=== PATIENT | male | born 1955 | race Caucasian/White ===

== ENCOUNTER 2018-07-02 10:04 | Day surgery (SDC) | payer OTHER ==
[~2018-07-02 10:04] MED LIST: CIPROFLOXACIN 0.3% OPHTH SOLUTION 5ML BOTTLE. OS ONE; DOCU100C28 PO; HYDROmorphone 2 MG/ML VIAL IV PRN; IV RINGERS,LACTATED 1000ML 1,000 ML IV SCH; LEVO175T5 PO; LIDOCAINE 1% PF 2 ML VIAL. ID PRN; LIDOCAINE 2% JELLY 6ML IN APPLICATOR. MM SCH; MORPHINE SULFATE 2 MG/ML VIAL. IV PRN; ONDANSETRON PF 4 MG/2 ML VIAL. IV PRN; PROCHLORPERAZINE 10 MG/2 ML VIAL. IV PRN; PROPARACAINE 0.5% OPHTH SOLUTION 15ML BOTTLE. OS ONE; fentaNYL PF VIAL 100 MCG/2 ML VIAL IV PRN
[2018-07-02] MEDS ORDERED: BALANCED SALT IRRIG OPHTH SOLN 15 ML BOTTLE. ONE (10:29)
[2018-07-02] MEDS ORDERED: LIDOCAINE 1% PF 2 ML VIAL. ONE (10:29)
[2018-07-02] MEDS ORDERED: CHONDROIT-SOD-HYALURONATE KIT. ONE ×2 (10:29→13:02)
[2018-07-02] MEDS ORDERED: NEO/POLYMYX/DEXAMETH OPHTH OINTMENT 3.5GM TUBE. ONE (10:29)
[2018-07-02] MEDS ORDERED: LIDOCAINE 2% JELLY 6ML IN APPLICATOR. ONE (10:29)
[2018-07-02] MEDS: PHENYLEPHRINE 10% OPHTH SOLUTION 5ML BOTTLE. OS SCH ×3 (11:33→11:47)
[2018-07-02] MEDS: CYCLOPENTOLATE 1% OPTH SOLUTION 2ML BOTTLE. OS SCH ×2 (11:39→11:48)
[2018-07-02] MEDS ORDERED: PROPOFOL 20 ML IV ONE (11:52)
[2018-07-02 13:06] VITALS: BP 181/81
--- NOTE | 2018-07-02 13:31 | OP ---
DATE OF SURGERY: PREOPERATIVE DIAGNOSIS: Senile cataract, left eye. POSTOPERATIVE DIAGNOSIS: Senile cataract, left eye. PROCEDURE: Phacoemulsification with posterior chamber lens implant, left eye. ANESTHESIA: Local with MAC. DESCRIPTION OF PROCEDURE: The patient's dilating drops and anesthetic drops were given in the holding room with a [place] balloon cuff placed and allowed to act for about 15 minutes. The patient was then brought to the operating room, where the left eye was prepped and draped in usual sterile manner for an intraocular procedure. A lid speculum was placed between the eyelids and the operating scope brought into position. A paracentesis incision was made inferior temporally and Viscoat injected into the anterior chamber. The primary 2.4 mm incision was then made temporally. A capsulorrhexis of about 5.5 mm was made about the dilated pupillary border. The lens was hydrodissected and then phacoemulsified using the phaco handpiece. The cortex was then aspirated with the I/A handpiece. Provisc was then used to insufflate the bag and form the anterior chamber and a posterior chamber lens placed into the bag without difficulty. The viscoelastic was then aspirated and the wound hydrated and the eye pressurized. The wound was checked for leaks and there were none. The speculum and drape were removed and Maxitrol ointment instilled in the conjunctival sac and the eye was shielded. The patient was taken to the recovery room in satisfactory condition. There were no complications. I will see the patient tomorrow in my office. K KATHRYN MOONEY MD DR: ALEXEI/phil JOB#: [id number] / [id number]
== END 2018-07-02 13:40 | disposition home or self-care (01) ==
LOC: SURG 10:04 → EDUNIT# 12:00 → SURG 13:40
PROVIDERS: ATTEND Ophthalmology
DX: H25.12 Age-related nuclear cataract, left eye (principal); E03.9 Hypothyroidism, unspecified; Z72.89 Other problems related to lifestyle; Z98.41 Cataract extraction status, right eye; Z96.1 Presence of intraocular lens; Z85.818 Personal history of malignant neoplasm of other sites of lip, oral cavity, and pharynx; Z79.899 Other long term (current) drug therapy; Z98.890 Other specified postprocedural states
CPT/HCPCS: 66984; A4461; C1780; J0171; J2704

== ENCOUNTER 2018-10-12 14:54 | Inpatient (IN) | payer OTHER ==
[~2018-10-12] VITALS: Ht 188 cm; Wt 88.5 kg
[~2018-10-12 14:54] MED LIST changes: -CIPROFLOXACIN 0.3% OPHTH SOLUTION 5ML BOTTLE. OS ONE; -HYDROmorphone 2 MG/ML VIAL IV PRN; -IV RINGERS,LACTATED 1000ML 1,000 ML IV SCH; -LIDOCAINE 1% PF 2 ML VIAL. ID PRN; -LIDOCAINE 2% JELLY 6ML IN APPLICATOR. MM SCH; -MORPHINE SULFATE 2 MG/ML VIAL. IV PRN; -ONDANSETRON PF 4 MG/2 ML VIAL. IV PRN; -PROCHLORPERAZINE 10 MG/2 ML VIAL. IV PRN; -PROPARACAINE 0.5% OPHTH SOLUTION 15ML BOTTLE. OS ONE; -fentaNYL PF VIAL 100 MCG/2 ML VIAL IV PRN
[2018-10-12] MEDS ORDERED: IPRATRPIUM/ALBUTEROL 0.5/2.5MG 3 ML NEBU. NEB ONE (15:15)
--- NOTE | 2018-10-12 15:40 | RAD ---
CHEST AP ONLY Clinical Indication: soa Comparison: None. Findings: The cardiomediastinal silhouette is normal. Subtle opacity involving the right medial basilar aspect raises question of interstitial infiltrate. There is no pneumothorax. No pleural effusion is appreciated. No acute bone abnormality. IMPRESSION: Possibility of subtle right basilar interstitial infiltrate is raised. Consider interval follow-up two-view chest x-ray exam to assess resolution. Electronically signed by: Gurdeep Myers MD (10/12/2018 3:37 PM) [facility]
--- NOTE | 2018-10-12 15:40 | PHYS DOC ---
Past Medical History Past Medical History: Cancer, Hypothyroid Past Surgical History: Cancer Surgery, Other Additional Past Surgical Histo: BILATERAL CATARACT Alcohol Use: Heavy Drug Use: None Adult General Chief Complaint Chief Complaint: SHORTNESS OF BREATH HPI HPI 62-year-old male presenting the emergency department today with a cough with shortness of breath since . He has a productive cough with brown phlegm. He reports having a fever over the past 2 days. He denies any pain. His shortness of breath is worse when he walks and improved with rest. It is associated with a productive cough. Review of systems is negative for chest pain vomiting abdominal pain. He denies unilateral leg swelling or history of blood clots. All other review of systems is negative unless otherwise noted in history of present illness. ED course: 62-year-old male presenting with a cough and shortness of breath. On arrival he is afebrile saturating well on room air. Breathing comfortably examination room. He has mild wheezing bilaterally without increased work of breathing. we will send blood work, get a chest x-ray and do a nebulizer for the patient here. Chest x-ray shows probable infiltrate. Blood work shows hyponatremia. CT angiogram confirms infiltrate. Patient was given IV antibiotics and admitted for further treatment and care. Review of Systems Review of Systems SEE ABOVE. Current Medications Current Medications Current Medications Medications (Trade) Dose Ordered Sig/Jarvis Start Time Stop Time Status Last Admin Dose Admin Albuterol/ Ipratropium (Duoneb) 3 ml 1X ONCE 10/12/18 15:15 10/12/18 15:16 DC 10/12/18 15:29 3 ML Azithromycin 250 ml @ 250 mls/hr 1X ONCE 10/12/18 18:30 10/12/18 19:29 Ceftriaxone Sodium (Rocephin) 1 gm 1X ONCE 10/12/18 17:45 10/12/18 17:46 UNV Iohexol (Omnipaque 350 Mg/ml) 100 ml 1X ONCE 10/12/18 16:45 10/12/18 16:46 DC 10/12/18 16:45 100 ML Labetalol HCl (Normodyne Iv Push) 10 mg 1X ONCE 10/12/18 17:45 10/12/18 17:46 UNV Morphine Sulfate (Morphine Sulfate) 2 mg PRN Q2HR PRN 10/12/18 17:45 10/13/18 17:44 UNV Ondansetron HCl (Zofran) 4 mg PRN Q8HRS PRN 10/12/18 17:45 10/13/18 17:44 UNV Sodium Chloride 1,000 ml @ 100 mls/hr Q10H 10/12/18 17:36 10/13/18 17:35 UNV Allergies Allergies Allergies Coded Allergies Type Severity Reaction Last Updated Verified No Known Drug Allergies 07/02/18 No Physical Exam Physical Exam SEE ABOVE Constitutional: Well developed, well nourished, no acute distress, non-toxic appearance. [] HENT: Normocephalic, atraumatic, bilateral external ears normal, oropharynx moist, no oral exudates, nose normal. [] Eyes: PERRLA, EOMI, conjunctiva normal, no discharge. [] Neck: Normal range of motion, no tenderness, supple, no stridor. [] Cardiovascular:Heart rate regular rhythm, no murmur [] Lungs & Thorax: as above. no crepitus to palpation Abdomen: Bowel sounds normal, soft, no tenderness, no masses, no pulsatile masses. [] Skin: Warm, dry, no erythema, no rash. [] Back: No tenderness, no CVA tenderness. [] Extremities: No tenderness, no cyanosis, no clubbing, ROM intact, no edema. [] Neurologic: Alert and oriented X 3, normal motor function, normal sensory function, no focal deficits noted. [] Psychologic: Affect normal, judgement normal, mood normal. [] Current Patient Data Vital Signs Vital Signs Date Time Temp Pulse Resp B/P (MAP) Pulse Ox O2 Delivery O2 Flow Rate FiO2 10/12/18 15:30 95 Room Air 10/12/18 15:23 98.6 82 20 150/78 (102) 98.6 Lab Values Laboratory Tests Test 10/12/18 15:31 10/12/18 16:02 White Blood Count 7.2 x10^3/uL (4.0-11.0) Red Blood Count 4.58 x10^6/uL (4.30-5.70) Hemoglobin 14.7 g/dL (13.0-17.5) Hematocrit 42.1 % (39.0-53.0) Mean Corpuscular Volume 92 fL (79-100) Mean Corpuscular Hemoglobin 32 pg (25-35) Mean Corpuscular Hemoglobin Concent 35 g/dL (31-37) Red Cell Distribution Width 14.0 % (11.5-14.5) Platelet Count 154 x10^3/uL (140-400) Neutrophils (%) (Auto) 85 % (31-73) H Lymphocytes (%) (Auto) 5 % (24-48) L Monocytes (%) (Auto) 10 % (0-9) H Eosinophils (%) (Auto) 0 % (0-3) Basophils (%) (Auto) 0 % (0-3) Neutrophils # (Auto) 6.1 x10^3uL (1.8-7.7) Lymphocytes # (Auto) 0.4 x10^3/uL (1.0-4.8) L Monocytes # (Auto) 0.7 x10^3/uL (0.0-1.1) Eosinophils # (Auto) 0.0 x10^3/uL (0.0-0.7) Basophils # (Auto) 0.0 x10^3/uL (0.0-0.2) D-Dimer (Renata) 1.31 ug/mlFEU (0.00-0.50) H Sodium Level 125 mmol/L (136-145) L Potassium Level 3.5 mmol/L (3.5-5.1) Chloride Level 89 mmol/L (98-107) L Carbon Dioxide Level 23 mmol/L (21-32) Anion Gap 13 (6-14) Blood Urea Nitrogen 6 mg/dL (8-26) L Creatinine 0.9 mg/dL (0.7-1.3) Estimated GFR (Cockcroft-Gault) 86.1 Glucose Level 119 mg/dL (70-99) H Calcium Level 8.8 mg/dL (8.5-10.1) Total Bilirubin 0.8 mg/dL (0.2-1.0) Direct Bilirubin 0.2 mg/dL (0.0-0.2) Aspartate Amino Transferase (AST) 48 U/L (15-37) H Alanine Aminotransferase (ALT) 24 U/L (16-63) Alkaline Phosphatase 69 U/L (46-116) Troponin I Quantitative < 0.017 ng/mL (0.000-0.055) TG-Eqd-P-Type Natriuretic Peptide 269 pg/mL (0-124) H Total Protein 7.8 g/dL (6.4-8.2) Albumin 3.0 g/dL (3.4-5.0) L Lipase 90 U/L (73-393) Influenza Type A Antigen Negative (NEGATIVE) Influenza Type B Antigen Negative (NEGATIVE) Laboratory Tests 10/12/18 15:31 Laboratory Tests 10/12/18 15:31 EKG EKG [] Radiology/Procedures Radiology/Procedures [] Course & Med Decision Making Course & Med Decision Making Pertinent Labs and Imaging studies reviewed. (See chart for details) [] Dragon Disclaimer Dragon Disclaimer This electronic medical record was generated, in whole or in part, using a voice recognition dictation system. Departure Departure Impression: Primary Impression: Pneumonia Additional Impression: Productive cough Disposition: ADMITTED INPATIENT Admitting Physician: Mariano Washington, Other Condition: STABLE Referrals: NO PCP (PCP) Problem Qualifiers DANILO HOLLIDAY MD Oct 12, 2018 15:40
[2018-10-12 15:49] LABS: BASO % 0 % (0-3); EOS % 0 % (0-3); HEMATOCRIT 42.1 % (39.0-53.0); HEMOGLOBIN 14.7 g/dL (13.0-17.5); LYMPH # 0.4 x10^3/uL (1.0-4.8); LYMPH % 5 % (24-48); MEAN CORPUSCULAR HEMOGLOBIN 32 pg (25-35); MEAN CORPUSCULAR HGB CONC 35 g/dL (31-37); MEAN CORPUSCULAR VOLUME 92 fL (79-100); MONO # 0.7 x10^3/uL (0.0-1.1); MONO % 10 % (0-9); NEUT # 6.1 x10^3uL (1.8-7.7); NEUT % 85 % (31-73); PLATELET COUNT 154 x10^3/uL (140-400); RED BLOOD COUNT 4.58 x10^6/uL (4.30-5.70); WHITE BLOOD COUNT 7.2 x10^3/uL (4.0-11.0)
[2018-10-12 16:03] LABS: CALCIUM 8.8 mg/dL (8.5-10.1); CREATININE 0.9 mg/dL (0.7-1.3); GFR 86.1; POTASSIUM 3.5 mmol/L (3.5-5.1)
[2018-10-12 16:07] LABS: DIRECT BILIRUBIN 0.2 mg/dL (0.0-0.2); TOTAL BILIRUBIN 0.8 mg/dL (0.2-1.0); TOTAL PROTEIN 7.8 g/dL (6.4-8.2)
[2018-10-12 16:28] LABS: INFLUENZA A PATIENT NEGATIVE (NEGATIVE); INFLUENZA B PATIENT NEGATIVE (NEGATIVE)
[2018-10-12] MEDS ORDERED: IOHEXOL 350 MG/ML 100 ML VIAL. IV ONE (16:45)
--- NOTE | 2018-10-12 17:33 | RAD ---
CT angiography chest with contrast PQRS statement: CT scans at this facility use dose reduction including either automated exposure control, iterative reconstructions, and /or weight based radiation dosing via mA and kV modification when appropriate to reduce radiation dose to as low as reasonably achievable. HISTORY: Cough for several days. TECHNIQUE: Helical CT imaging of the chest with 3-D MIP reconstructions of the pulmonary arteries to assess for emboli with 100 mL Omnipaque 300 intravenous contrast. FINDINGS: Ectasia ascending thoracic aorta diameter 3.7 cm. Heart size is normal. Heart size normal. No pulmonary artery emboli. Esophagus and thoracic aorta are unremarkable. There is mild bilateral hilar adenopathy with lymph nodes measuring up to 1.5 cm in size. Centrilobular pulmonary emphysema. Mild bronchial wall thickening. Extensive centrilobular nodules and scattered opacities with a preferential involvement at the lower lobes and right middle lobe where there is consolidation with air bronchograms of the right middle lobe. Tiny subcentimeter dependent pleural effusions along the posterior diaphragms. Bones are unremarkable. IMPRESSION: 1. No pulmonary artery emboli. 2. Extensive bilateral multilobar centrilobular nodules and opacities, with consolidation of the right middle lobe with air bronchograms, most typical of multilobar endobronchial pneumonia. Sarcoidosis would be a secondary consideration given the presence of adenopathy. Consider follow-up CT imaging in 3 months per Fleischner guidelines to document that this resolves to exclude the possibility of neoplasia. 3. Mild hilar adenopathy. Electronically signed by: Shantanu Burroughs MD (10/12/2018 5:30 PM) [facility]
[2018-10-12] MEDS: IV NORMAL SALINE 1000ML BAG 1,000 ML IV SCH ×2 (17:36→20:32)
[2018-10-12] MEDS ORDERED: ONDANSETRON PF 4 MG/2 ML VIAL. IV PRN (17:45)
[2018-10-12] MEDS ORDERED: MORPHINE SULFATE 2 MG/ML VIAL. IV PRN (17:45)
--- NOTE | 2018-10-12 17:54 | PDOC1 ---
History and Physical Date of Admission Date of Admission DATE: 10/12/18 TIME: 17:54 Identification/Chief Complaint Chief Complaint SEEN IN ER , presented with a cough and shortness of breath. mild wheezing bilaterally SOME increased work of breathing. Chest x-ray shows probable infiltrate. Blood work C/W hyponatremia. CT angiogram confirms SIGNIFICANT infiltrate. Patient was given IV antibiotics IN ER Past Medical History Past Medical History Past Medical History Past Medical History Past Medical History: Cancer, Hypothyroid Past Surgical History: Cancer Surgery, Other Additional Past Surgical Histo: BILATERAL CATARACT Alcohol Use: Heavy Drug Use: None family hx copd Psych: Addictions Endocrine: Hypothyroidism Past Surgical History Past Surgical History Phacoemulsification with posterior chamber lens implant, left eye. 07/08 Past Surgical History: Cataract Removal Family History Family History: Alcohol Abuse Family History: Parent Social History Smoke: <1 pack per day ALCOHOL: heavy Drugs: None Current Problem List Problem List Problems Medical Problems: (1) Pneumonia Status: Acute (2) Productive cough Status: Acute Current Medications Current Medications Current Medications Albuterol/ Ipratropium (Duoneb) 3 ml 1X ONCE NEB Last administered on at 15:29; Start 10/12/18 at 15:15; Stop 10/12/18 at 15:16; Status DC Iohexol (Omnipaque 350 Mg/ml) 100 ml 1X ONCE IV Last administered on at 16:45; Start 10/12/18 at 16:45; Stop 10/12/18 at 16:46; Status DC Azithromycin 250 ml @ 250 mls/hr 1X ONCE IV ; Start 10/12/18 at 18:30; Stop at 19:29 Ceftriaxone Sodium (Rocephin) 1 gm 1X ONCE IVP ; Start 10/12/18 at 18:00; Stop 10/12/18 at 18:01 Ondansetron HCl (Zofran) 4 mg PRN Q8HRS PRN IV NAUSEA/VOMITING; Start 10/12/18 at 17:45; Stop 10/13/18 at 17:44 Morphine Sulfate (Morphine Sulfate) 2 mg PRN Q2HR PRN IV PAIN; Start 10/12/18 at 17:45; Stop 10/13/18 at 17:44 Sodium Chloride 1,000 ml @ 100 mls/hr Q10H IV ; Start 10/12/18 at 17:36; Stop 10/13/18 at 17:35 Labetalol HCl (Normodyne Iv Push) 10 mg 1X ONCE IVP ; Start 10/12/18 at 18:15; Stop 10/12/18 at 18:16 Active Scripts Active Reported Docusate Sodium 100 Mg Capsule 100 Mg PO PRN PRN Levothyroxine Sodium 175 Mcg Tablet 175 Mcg PO DAILYAC Allergies Allergies: Coded Allergies: No Known Drug Allergies (Unverified , 07/02/18) ROS Review of System 14 PT ROS OTHERWISE NEG General: YES: Fatigue PSYCHOLOGICAL ROS: YES: Anxiety Eyes: No Blurry vision, No Decreased vision, No Double vision, No Dry eyes, No Excessive tearing, No Eye Pain, No Itchy Eyes, No Loss of vision, No Photophobia , No Scotomata, No Uses contacts, No Uses glasses, No Other HEENT: No: Heacaches, Visual Changes, Hearing change, Nasal congestion, Nasal discharge, Oral lesions, Sinus pain, Sore Throat, Epistaxis, Sneezing, Snoring, Tinnitus, Vertigo, Vocal changes, Other ALLERGY AND IMMUNOLOGY: No: Hives, Insect Bite Sensitivity, Itchy/Watery Eyes, Nasal Congestion, Post Nasal Drip, Seasonal Allergies, Other Hematological and Lymphatic: No: Bleeding Problems, Blood Clots, Blood Transfusions, Brusing, Night Sweats, Pallor, Swollen Lymph Nodes, Other Respiratory: YES: Cough, Shortness of breath, SOB with excertion, Sputum Changes Gastrointestinal: No Nausea, No Vomiting, No Abdominal Pain, No Diarrhea, No Constipation, No Melena, No Hematochezia, No Other Genitourinary: No Dysuria, No Frequency, No Incontinence, No Hematuria, No Retention, No Discharge, No Urgency, No Pain, No Flank Pain, No Other, No , No , No , No , No , No , No Neurological: No Behavorial Changes, No Bowel/Bladder ControlChng, No Confusion , No Dizziness, No Gait Disturbance, No Headaches, No Impaired Coord/balance, No Memory Loss, No Numbness/Tingling, No Seizures, No Speech Problems, No Tremors, No Visual Changes, No Weakness, No Other Skin: No Dry Skin, No Eczema, No Hair Changes, No Lumps, No Mole Changes, No Mottling, No Nail Changes, No Pruritus, No Rash, No Skin Lesion Changes, No Other, No Acne Physical Exam Physical Exam Physical Exam Physical Exam SEE ABOVE Constitutional: Well developed, well nourished, MILD acute distress, non-toxic appearance. [] HENT: Normocephalic, atraumatic, bilateral external ears normal, oropharynx moist, no oral exudates, nose normal. [] Eyes: PERRLA, EOMI, conjunctiva normal, no discharge. [] Neck: Normal range of motion, no tenderness, supple, no stridor. [] Cardiovascular:Heart rate regular rhythm, no murmur [] Lungs & Thorax: FEW RLL CRACKLES, EXP WHEEZES no crepitus to palpation Abdomen: Bowel sounds normal, soft, no tenderness, no masses, no pulsatile masses. [] Skin: Warm, dry, no erythema, no rash. [] Back: No tenderness, no CVA tenderness. [] Extremities: No tenderness, no cyanosis, no clubbing, ROM intact, no edema. [] Neurologic: Alert and oriented X 3, normal motor function, normal sensory function, no focal deficits noted. [] Psychologic: Affect normal, judgement normal, mood normal. [] General: Alert, Oriented X3, Cooperative, mild distress HEENT: Atraumatic, EOMI Heart: RRR, no thrills, no gallops Breasts: Not examined Abdomen: Normal bowel sounds, Soft, No tenderness Rectal Exam: not examined Extremities: No cyanosis, No edema Neuro: Normal speech, Cranial nerves 3-12 NL Psych/Mental Status: Mental status NL Vitals Vitals Vital Signs Date Time Temp Pulse Resp B/P (MAP) Pulse Ox O2 Delivery O2 Flow Rate FiO2 10/12/18 15:30 95 Room Air 10/12/18 15:23 98.6 82 20 150/78 (102) 98.6 Labs Labs Laboratory Tests Test 10/12/18 15:31 10/12/18 16:02 White Blood Count 7.2 x10^3/uL (4.0-11.0) Red Blood Count 4.58 x10^6/uL (4.30-5.70) Hemoglobin 14.7 g/dL (13.0-17.5) Hematocrit 42.1 % (39.0-53.0) Mean Corpuscular Volume 92 fL (79-100) Mean Corpuscular Hemoglobin 32 pg (25-35) Mean Corpuscular Hemoglobin Concent 35 g/dL (31-37) Red Cell Distribution Width 14.0 % (11.5-14.5) Platelet Count 154 x10^3/uL (140-400) Neutrophils (%) (Auto) 85 % (31-73) Lymphocytes (%) (Auto) 5 % (24-48) Monocytes (%) (Auto) 10 % (0-9) Eosinophils (%) (Auto) 0 % (0-3) Basophils (%) (Auto) 0 % (0-3) Neutrophils # (Auto) 6.1 x10^3uL (1.8-7.7) Lymphocytes # (Auto) 0.4 x10^3/uL (1.0-4.8) Monocytes # (Auto) 0.7 x10^3/uL (0.0-1.1) Eosinophils # (Auto) 0.0 x10^3/uL (0.0-0.7) Basophils # (Auto) 0.0 x10^3/uL (0.0-0.2) D-Dimer (Renata) 1.31 ug/mlFEU (0.00-0.50) Sodium Level 125 mmol/L (136-145) Potassium Level 3.5 mmol/L (3.5-5.1) Chloride Level 89 mmol/L (98-107) Carbon Dioxide Level 23 mmol/L (21-32) Anion Gap 13 (6-14) Blood Urea Nitrogen 6 mg/dL (8-26) Creatinine 0.9 mg/dL (0.7-1.3) Estimated GFR (Cockcroft-Gault) 86.1 Glucose Level 119 mg/dL (70-99) Calcium Level 8.8 mg/dL (8.5-10.1) Total Bilirubin 0.8 mg/dL (0.2-1.0) Direct Bilirubin 0.2 mg/dL (0.0-0.2) Aspartate Amino Transf (AST/SGOT) 48 U/L (15-37) Alanine Aminotransferase (ALT/SGPT) 24 U/L (16-63) Alkaline Phosphatase 69 U/L (46-116) Troponin I Quantitative < 0.017 ng/mL (0.000-0.055) QW-Rfq-I-Type Natriuretic Peptide 269 pg/mL (0-124) Total Protein 7.8 g/dL (6.4-8.2) Albumin 3.0 g/dL (3.4-5.0) Lipase 90 U/L (73-393) Influenza Type A Antigen Negative (NEGATIVE) Influenza Type B Antigen Negative (NEGATIVE) Laboratory Tests Test 10/12/18 15:31 10/12/18 16:02 White Blood Count 7.2 x10^3/uL (4.0-11.0) Red Blood Count 4.58 x10^6/uL (4.30-5.70) Hemoglobin 14.7 g/dL (13.0-17.5) Hematocrit 42.1 % (39.0-53.0) Mean Corpuscular Volume 92 fL (79-100) Mean Corpuscular Hemoglobin 32 pg (25-35) Mean Corpuscular Hemoglobin Concent 35 g/dL (31-37) Red Cell Distribution Width 14.0 % (11.5-14.5) Platelet Count 154 x10^3/uL (140-400) Neutrophils (%) (Auto) 85 % (31-73) Lymphocytes (%) (Auto) 5 % (24-48) Monocytes (%) (Auto) 10 % (0-9) Eosinophils (%) (Auto) 0 % (0-3) Basophils (%) (Auto) 0 % (0-3) Neutrophils # (Auto) 6.1 x10^3uL (1.8-7.7) Lymphocytes # (Auto) 0.4 x10^3/uL (1.0-4.8) Monocytes # (Auto) 0.7 x10^3/uL (0.0-1.1) Eosinophils # (Auto) 0.0 x10^3/uL (0.0-0.7) Basophils # (Auto) 0.0 x10^3/uL (0.0-0.2) D-Dimer (Renata) 1.31 ug/mlFEU (0.00-0.50) Sodium Level 125 mmol/L (136-145) Potassium Level 3.5 mmol/L (3.5-5.1) Chloride Level 89 mmol/L (98-107) Carbon Dioxide Level 23 mmol/L (21-32) Anion Gap 13 (6-14) Blood Urea Nitrogen 6 mg/dL (8-26) Creatinine 0.9 mg/dL (0.7-1.3) Estimated GFR (Cockcroft-Gault) 86.1 Glucose Level 119 mg/dL (70-99) Calcium Level 8.8 mg/dL (8.5-10.1) Total Bilirubin 0.8 mg/dL (0.2-1.0) Direct Bilirubin 0.2 mg/dL (0.0-0.2) Aspartate Amino Transf (AST/SGOT) 48 U/L (15-37) Alanine Aminotransferase (ALT/SGPT) 24 U/L (16-63) Alkaline Phosphatase 69 U/L (46-116) Troponin I Quantitative < 0.017 ng/mL (0.000-0.055) RY-Xcs-M-Type Natriuretic Peptide 269 pg/mL (0-124) Total Protein 7.8 g/dL (6.4-8.2) Albumin 3.0 g/dL (3.4-5.0) Lipase 90 U/L (73-393) Influenza Type A Antigen Negative (NEGATIVE) Influenza Type B Antigen Negative (NEGATIVE) Images Images SEX: M EXAM STATUS: REG ER ORD. PHYSICIAN: DANILO HOLLIDAY MD REASON: R/O PE PROCEDURE: CT ANGIOGRAPHY CHEST CT angiography chest with contrast PQRS statement: CT scans at this facility use dose reduction including either automated exposure control, iterative reconstructions, and /or weight based radiation dosing via mA and kV modification when appropriate to reduce radiation dose to as low as reasonably achievable. HISTORY: Cough for several days. TECHNIQUE: Helical CT imaging of the chest with 3-D MIP reconstructions of the pulmonary arteries to assess for emboli with 100 mL Omnipaque 300 intravenous contrast. FINDINGS: Ectasia ascending thoracic aorta diameter 3.7 cm. Heart size is normal. Heart size normal. No pulmonary artery emboli. Esophagus and thoracic aorta are unremarkable. There is mild bilateral hilar adenopathy with lymph nodes measuring up to 1.5 cm in size. Centrilobular pulmonary emphysema. Mild bronchial wall thickening. Extensive centrilobular nodules and scattered opacities with a preferential involvement at the lower lobes and right middle lobe where there is consolidation with air bronchograms of the right middle lobe. Tiny subcentimeter dependent pleural effusions along the posterior diaphragms. Bones are unremarkable. IMPRESSION: 1. No pulmonary artery emboli. 2. Extensive bilateral multilobar centrilobular nodules and opacities, with consolidation of the right middle lobe with air bronchograms, most typical of multilobar endobronchial pneumonia. Sarcoidosis would be a secondary consideration given the presence of adenopathy. Consider follow-up CT imaging in 3 months per Fleischner guidelines to document that this resolves to exclude the possibility of neoplasia. 3. Mild hilar adenopathy. Electronically signed by: Shantanu Burroughs MD (10/12/2018 5:30 PM) [facility] VTE Prophylaxis Ordered VTE Prophylaxis Devices: Yes VTE Pharmacological Prophylaxi: Yes Assessment/Plan Assessment/Plan IMPRESSION 1. PNEUMONITIS// pneumonia Extensive bilateral multilobar centrilobular nodules and opacities, with consolidation of the right middle lobe with air bronchograms, most typical of multilobar endobronchial pneumonia. Sarcoidosis would be a secondary consideration given the presence of adenopathy 2. HYPONATREMIA, Suspect volume depleted 3. SEVERE ALCOHOL ABUSE 4. tobacco abuse 5. Phacoemulsification with posterior chamber lens implant, left eye. 07/08 PLAN IV ANTIBIOTICS ALCOHOL WITHDRAWAL precautions banana bag dvt prophylaxis pulm consult iv zosyn, VANC ID CONSULT FREQUENT LABS urinary sodium 77 MIN PT EXAM, CHART REVIEW > 50% of time with pt exam, chart review, pt care coordination MARÍA ELENA GREENE MD Oct 12, 2018 17:54
[2018-10-12] MEDS ORDERED: cefTRIAXone IV Push 1 GM VIAL. IVP ONE (18:00)
[2018-10-12] MEDS ORDERED: LABETALOL 20 MG/4 ML DISP.SYRIN. IVP ONE (18:15)
[2018-10-12] MEDS ORDERED: AZITHRMYCN 500MG IVPB FOR OMNI 250 ML IV ONE (18:30)
[2018-10-12] MEDS ORDERED: ALBUTEROL SULFATE 2.5 MG/3 ML NEBU. NEB PRN (20:00)
[2018-10-12] MEDS ORDERED: BENZONATATE 100 MG CAPSULE. PO PRN (20:00)
[2018-10-12] MEDS: IPRATRPIUM/ALBUTEROL 0.5/2.5MG 3 ML NEBU. NEB SCH (20:18)
[2018-10-12 20:28] VITALS: BP 144/67
[2018-10-12] MEDS ORDERED: DOCUSATE SODIUM 100 MG CAPSULE. PO PRN (20:30)
[2018-10-12] MEDS: ZOLPIDEM 5 MG TABLET. PO PRN (22:09)
[2018-10-12] MEDS ORDERED: VANCOMYCIN 2 GM in IV NORMAL SALINE 500ML BAG 500 ML IV ONE (22:30)
[2018-10-12] MEDS ORDERED: LORazepam 1 MG TABLET PO PRN ×2 (22:30)
[2018-10-12] MEDS ORDERED: cloNIDine HCL 0.1 MG TABLET PO PRN (22:30)
[2018-10-12] MEDS ORDERED: diphenhydrAMINE 50 MG/ML VIAL IVP PRN (22:30)
[2018-10-12] MEDS ORDERED: HALOPERIDOL LACTATE 5 MG/ML VIAL. IVP PRN (22:30)
[2018-10-12 22:52] VITALS: BP 154/64
[2018-10-12] MEDS: VANCOMYCIN PER PHARMACY MC PRN (23:09)
--- NOTE | 2018-10-12 23:13 | NUR ---
Pharmacy Vancomycin Dosing Note S:Consulted to monitor and dose vancomycin started 10/12/18. O:SHALINI MOORE is a 62 year old M with Pneumonia . Height: 6 feet, 2 inches Weight: 88.540585 kg [place] Body Weight: 82.20 Adjusted Body Weight: 84.72 Dosing Weight: Actual Other Antibiotics: ZOSYN 3.375GM IV Q6H LABS: Last BUN: 6 Last Creatinine: 0.9 Creatinine Clearance: 104.6 mL/min Last WBC: 7.2 Last Procalcitonin: Tmax (past 24 hours): Microbiology: I/O: Drug Levels: Last level: on at Last dose given at Vancomycin Dosing: Loading Dose: 2000 mg x1 10/12/18 APPROX 2300 Dosing Weight: Actual Target Trough: 15-20 A: Based on: Actual Wt and CrCl P: 1. 10/13/18 1100 Vancomycin 1500 mg IV q12h 2. Follow up Trough level on 10/14/18 at 1030 3. Pharmacy will continue to monitor, follow and adjust therapy as needed. VICTORIA WOODARD RPH, 10/12/18 2313 Signed: 10/12/18 at 2314 by VICTORIA WOODARD RPH PHA
[2018-10-13] MEDS: PIPERACILLIN/TAZOBACTAM 3.375 GM in IV NORMAL SALINE 50ML 50 ML IV SCH ×4 (01:37→17:18)
[2018-10-13 02:15] LABS: BARBITURATES NEG (NEG); BENZODIAZEPINES NEG (NEG); CANNABINOIDS NEG (NEG); COCAINE NEG (NEG); METHADONE NEG (NEG); OPIATES NEG (NEG); PHENCYCLIDINE NEG (NEG)
[2018-10-13 02:37] LABS: AMPHETAMINE/METHAMPHETAMINE NEG (NEG)
[2018-10-13 03:00] VITALS: BP 144/79
[2018-10-13 03:55] LABS: BASO % 0 % (0-3); EOS % 0 % (0-3); HEMATOCRIT 37.5 % (39.0-53.0); LYMPH # 0.4 x10^3/uL (1.0-4.8); LYMPH % 6 % (24-48); MEAN CORPUSCULAR HEMOGLOBIN 32 pg (25-35); MEAN CORPUSCULAR HGB CONC 35 g/dL (31-37); MEAN CORPUSCULAR VOLUME 92 fL (79-100); MONO # 0.6 x10^3/uL (0.0-1.1); MONO % 8 % (0-9); NEUT # 6.2 x10^3uL (1.8-7.7); NEUT % 86 % (31-73); PLATELET COUNT 142 x10^3/uL (140-400); RED BLOOD COUNT 4.07 x10^6/uL (4.30-5.70); RED CELL DISTRIBUTION WIDTH 13.8 % (11.5-14.5); WHITE BLOOD COUNT 7.2 x10^3/uL (4.0-11.0)
[2018-10-13 04:19] LABS: CREATININE 0.8 mg/dL (0.7-1.3); GFR 98.6; POTASSIUM 3.1 mmol/L (3.5-5.1)
[2018-10-13] MEDS: LEVOTHYROXINE 175 MCG TABLET PO SCH (06:29)
--- NOTE | 2018-10-13 06:51 | NUR ---
CONSULTATIONS Dr. Ross Foy (ID) contacted by phone for new consult on pt. Dr. Mcgovern also contacted by phone for new consult on pt, stated Dr. Gunderson will be in today.
[2018-10-13 07:00] VITALS: BP 152/78
[2018-10-13] MEDS: IPRATRPIUM/ALBUTEROL 0.5/2.5MG 3 ML NEBU. NEB SCH ×4 (07:00→20:48)
--- NOTE | 2018-10-13 07:46 | EKG ---
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
[2018-10-13] MEDS ORDERED: MULTIVITAMIN with MINERAL TABLET. PO SCH (09:00)
[2018-10-13] MEDS ORDERED: MULTIVIT INFUSN,ADULT 4,VIT K 10 ML, THIAMINE INJ 100 MG, FOLIC ACID INJ 1 MG in IV NOR... IV SCH (09:00)
[2018-10-13] MEDS ORDERED: FOLIC ACID 1 MG TABLET. PO SCH (09:00)
[2018-10-13] MEDS: guaiFENesin DM 200MG/20MG 10 ML SYRUP PO PRN ×2 (09:25→17:21)
[2018-10-13] MEDS: BENZONATATE 100 MG CAPSULE. PO SCH ×3 (09:25→21:26)
[2018-10-13] MEDS: VANCOMYCIN 1.5 GM in IV NORMAL SALINE 500ML BAG 500 ML IV SCH ×2 (10:37→23:16)
--- NOTE | 2018-10-13 10:54 | PDOC ---
PROGRESS NOTES Chief Complaint Chief Complaint 1. MUltilobar pneumonia Smoker Hyponatremia, in a COPD er Occasional etoh drinker Left eye implant 06/2018 [id number]-[id number] 1.10 History of Present Illness History of Present Illness He is feeling way better than on admission His cough is loosening up NO fevers Colleague has started Doxy 100 twice a day IVP also on solu 60 IV every 8 which I think we can start decreasing it as he is not wheezing too much Never had pneumonia before He does continue to smoke half a pack a day to 1 pack a day I have provided him a copy of CT chest which shows no PE but multi lobar pneumonia banana bag running but he is only an occasional drinker. Sodium 124 in the COPD year-potassium 3.1 on KCl 10 mg Plan: KCl by mouth tablet 401 now ID and pulmo consulted for the multi lobar pneumonia Current IVF to consume-he but appears euvolemic and there is usually an SIADH picture in COPDer DC current banana bag Recheck pro-calcitonin tomorrow-it was 1.10 on admission- fulfills sepsis criteria Chayito patch when necessary Counseled on smoking less than 30 mins Vitals Vitals Vital Signs Date Time Temp Pulse Resp B/P (MAP) Pulse Ox O2 Delivery O2 Flow Rate FiO2 10/13/18 08:00 Room Air 10/13/18 07:00 99.1 81 18 152/78 (102) 97 99.1 Physical Exam General: Alert, Oriented X3, Cooperative, mild distress Abdomen: Normal bowel sounds, Soft, No tenderness Extremities: No cyanosis, No edema Labs LABS Laboratory Tests Test 10/12/18 15:31 10/12/18 16:02 10/13/18 01:30 10/13/18 03:35 White Blood Count 7.2 x10^3/uL (4.0-11.0) 7.2 x10^3/uL (4.0-11.0) Red Blood Count 4.58 x10^6/uL (4.30-5.70) 4.07 x10^6/uL (4.30-5.70) Hemoglobin 14.7 g/dL (13.0-17.5) 13.0 g/dL (13.0-17.5) Hematocrit 42.1 % (39.0-53.0) 37.5 % (39.0-53.0) Mean Corpuscular Volume 92 fL (79-100) 92 fL (79-100) Mean Corpuscular Hemoglobin 32 pg (25-35) 32 pg (25-35) Mean Corpuscular Hemoglobin Concent 35 g/dL (31-37) 35 g/dL (31-37) Red Cell Distribution Width 14.0 % (11.5-14.5) 13.8 % (11.5-14.5) Platelet Count 154 x10^3/uL (140-400) 142 x10^3/uL (140-400) Neutrophils (%) (Auto) 85 % (31-73) 86 % (31-73) Lymphocytes (%) (Auto) 5 % (24-48) 6 % (24-48) Monocytes (%) (Auto) 10 % (0-9) 8 % (0-9) Eosinophils (%) (Auto) 0 % (0-3) 0 % (0-3) Basophils (%) (Auto) 0 % (0-3) 0 % (0-3) Neutrophils # (Auto) 6.1 x10^3uL (1.8-7.7) 6.2 x10^3uL (1.8-7.7) Lymphocytes # (Auto) 0.4 x10^3/uL (1.0-4.8) 0.4 x10^3/uL (1.0-4.8) Monocytes # (Auto) 0.7 x10^3/uL (0.0-1.1) 0.6 x10^3/uL (0.0-1.1) Eosinophils # (Auto) 0.0 x10^3/uL (0.0-0.7) 0.0 x10^3/uL (0.0-0.7) Basophils # (Auto) 0.0 x10^3/uL (0.0-0.2) 0.0 x10^3/uL (0.0-0.2) D-Dimer (Renata) 1.31 ug/mlFEU (0.00-0.50) Sodium Level 125 mmol/L (136-145) 124 mmol/L (136-145) Potassium Level 3.5 mmol/L (3.5-5.1) 3.1 mmol/L (3.5-5.1) Chloride Level 89 mmol/L (98-107) 90 mmol/L (98-107) Carbon Dioxide Level 23 mmol/L (21-32) 21 mmol/L (21-32) Anion Gap 13 (6-14) 13 (6-14) Blood Urea Nitrogen 6 mg/dL (8-26) 8 mg/dL (8-26) Creatinine 0.9 mg/dL (0.7-1.3) 0.8 mg/dL (0.7-1.3) Estimated GFR (Cockcroft-Gault) 86.1 98.6 Glucose Level 119 mg/dL (70-99) 114 mg/dL (70-99) Calcium Level 8.8 mg/dL (8.5-10.1) 8.0 mg/dL (8.5-10.1) Total Bilirubin 0.8 mg/dL (0.2-1.0) Direct Bilirubin 0.2 mg/dL (0.0-0.2) Aspartate Amino Transf (AST/SGOT) 48 U/L (15-37) Alanine Aminotransferase (ALT/SGPT) 24 U/L (16-63) Alkaline Phosphatase 69 U/L (46-116) Troponin I Quantitative < 0.017 ng/mL (0.000-0.055) FW-Ayf-K-Type Natriuretic Peptide 269 pg/mL (0-124) Total Protein 7.8 g/dL (6.4-8.2) Albumin 3.0 g/dL (3.4-5.0) Lipase 90 U/L (73-393) Influenza Type A Antigen Negative (NEGATIVE) Influenza Type B Antigen Negative (NEGATIVE) Urine Opiates Screen Neg (NEG) Urine Methadone Screen Neg (NEG) Urine Barbiturates Neg (NEG) Urine Phencyclidine Screen Neg (NEG) Urine Amphetamine/Methamphetamine Neg (NEG) Urine Benzodiazepines Screen Neg (NEG) Urine Cocaine Screen Neg (NEG) Urine Cannabinoids Screen Neg (NEG) Urine Ethyl Alcohol Neg (NEG) Procalcitonin 1.10 ng/mL (0.00-0.10) Review of Systems Review of Systems A 14 point ROS was completed with the following noted as positive: Other systems reviewed and negative. \CONSTITUTIONAL: No fever or chills EYES: No recent changes SKIN: No rash or itching CARDIOVASCULAR: No chest pain, syncope, palpitations, or edema RESPIRATORY: GASTROINTESTINAL: No nausea, vomiting or abdominal pain NEUROLOGICAL: No headaches or weakness ENDOCRINE: No cold or heat intolerance GENITOURINARY: No urgency or frequency of urination MUSCULOSKELETAL: No back pain or joint pain LYMPHATICS: No enlarged lymph nodes PSYCHIATRIC: No anxiety or depression Assessment and Plan Assessmemt and Plan Problems Medical Problems: (1) Pneumonia Status: Acute (2) Productive cough Status: Acute Comment Review of Relevant I have reviewed the following items ade (where applicable) has been applied. Labs Laboratory Tests Test 10/12/18 15:31 10/12/18 16:02 10/13/18 01:30 10/13/18 03:35 White Blood Count 7.2 x10^3/uL (4.0-11.0) 7.2 x10^3/uL (4.0-11.0) Red Blood Count 4.58 x10^6/uL (4.30-5.70) 4.07 x10^6/uL (4.30-5.70) Hemoglobin 14.7 g/dL (13.0-17.5) 13.0 g/dL (13.0-17.5) Hematocrit 42.1 % (39.0-53.0) 37.5 % (39.0-53.0) Mean Corpuscular Volume 92 fL (79-100) 92 fL (79-100) Mean Corpuscular Hemoglobin 32 pg (25-35) 32 pg (25-35) Mean Corpuscular Hemoglobin Concent 35 g/dL (31-37) 35 g/dL (31-37) Red Cell Distribution Width 14.0 % (11.5-14.5) 13.8 % (11.5-14.5) Platelet Count 154 x10^3/uL (140-400) 142 x10^3/uL (140-400) Neutrophils (%) (Auto) 85 % (31-73) 86 % (31-73) Lymphocytes (%) (Auto) 5 % (24-48) 6 % (24-48) Monocytes (%) (Auto) 10 % (0-9) 8 % (0-9) Eosinophils (%) (Auto) 0 % (0-3) 0 % (0-3) Basophils (%) (Auto) 0 % (0-3) 0 % (0-3) Neutrophils # (Auto) 6.1 x10^3uL (1.8-7.7) 6.2 x10^3uL (1.8-7.7) Lymphocytes # (Auto) 0.4 x10^3/uL (1.0-4.8) 0.4 x10^3/uL (1.0-4.8) Monocytes # (Auto) 0.7 x10^3/uL (0.0-1.1) 0.6 x10^3/uL (0.0-1.1) Eosinophils # (Auto) 0.0 x10^3/uL (0.0-0.7) 0.0 x10^3/uL (0.0-0.7) Basophils # (Auto) 0.0 x10^3/uL (0.0-0.2) 0.0 x10^3/uL (0.0-0.2) D-Dimer (Renata) 1.31 ug/mlFEU (0.00-0.50) Sodium Level 125 mmol/L (136-145) 124 mmol/L (136-145) Potassium Level 3.5 mmol/L (3.5-5.1) 3.1 mmol/L (3.5-5.1) Chloride Level 89 mmol/L (98-107) 90 mmol/L (98-107) Carbon Dioxide Level 23 mmol/L (21-32) 21 mmol/L (21-32) Anion Gap 13 (6-14) 13 (6-14) Blood Urea Nitrogen 6 mg/dL (8-26) 8 mg/dL (8-26) Creatinine 0.9 mg/dL (0.7-1.3) 0.8 mg/dL (0.7-1.3) Estimated GFR (Cockcroft-Gault) 86.1 98.6 Glucose Level 119 mg/dL (70-99) 114 mg/dL (70-99) Calcium Level 8.8 mg/dL (8.5-10.1) 8.0 mg/dL (8.5-10.1) Total Bilirubin 0.8 mg/dL (0.2-1.0) Direct Bilirubin 0.2 mg/dL (0.0-0.2) Aspartate Amino Transf (AST/SGOT) 48 U/L (15-37) Alanine Aminotransferase (ALT/SGPT) 24 U/L (16-63) Alkaline Phosphatase 69 U/L (46-116) Troponin I Quantitative < 0.017 ng/mL (0.000-0.055) CE-Xio-W-Type Natriuretic Peptide 269 pg/mL (0-124) Total Protein 7.8 g/dL (6.4-8.2) Albumin 3.0 g/dL (3.4-5.0) Lipase 90 U/L (73-393) Influenza Type A Antigen Negative (NEGATIVE) Influenza Type B Antigen Negative (NEGATIVE) Urine Opiates Screen Neg (NEG) Urine Methadone Screen Neg (NEG) Urine Barbiturates Neg (NEG) Urine Phencyclidine Screen Neg (NEG) Urine Amphetamine/Methamphetamine Neg (NEG) Urine Benzodiazepines Screen Neg (NEG) Urine Cocaine Screen Neg (NEG) Urine Cannabinoids Screen Neg (NEG) Urine Ethyl Alcohol Neg (NEG) Procalcitonin 1.10 ng/mL (0.00-0.10) Laboratory Tests Test 10/12/18 15:31 10/12/18 16:02 10/13/18 01:30 10/13/18 03:35 White Blood Count 7.2 x10^3/uL (4.0-11.0) 7.2 x10^3/uL (4.0-11.0) Red Blood Count 4.58 x10^6/uL (4.30-5.70) 4.07 x10^6/uL (4.30-5.70) Hemoglobin 14.7 g/dL (13.0-17.5) 13.0 g/dL (13.0-17.5) Hematocrit 42.1 % (39.0-53.0) 37.5 % (39.0-53.0) Mean Corpuscular Volume 92 fL (79-100) 92 fL (79-100) Mean Corpuscular Hemoglobin 32 pg (25-35) 32 pg (25-35) Mean Corpuscular Hemoglobin Concent 35 g/dL (31-37) 35 g/dL (31-37) Red Cell Distribution Width 14.0 % (11.5-14.5) 13.8 % (11.5-14.5) Platelet Count 154 x10^3/uL (140-400) 142 x10^3/uL (140-400) Neutrophils (%) (Auto) 85 % (31-73) 86 % (31-73) Lymphocytes (%) (Auto) 5 % (24-48) 6 % (24-48) Monocytes (%) (Auto) 10 % (0-9) 8 % (0-9) Eosinophils (%) (Auto) 0 % (0-3) 0 % (0-3) Basophils (%) (Auto) 0 % (0-3) 0 % (0-3) Neutrophils # (Auto) 6.1 x10^3uL (1.8-7.7) 6.2 x10^3uL (1.8-7.7) Lymphocytes # (Auto) 0.4 x10^3/uL (1.0-4.8) 0.4 x10^3/uL (1.0-4.8) Monocytes # (Auto) 0.7 x10^3/uL (0.0-1.1) 0.6 x10^3/uL (0.0-1.1) Eosinophils # (Auto) 0.0 x10^3/uL (0.0-0.7) 0.0 x10^3/uL (0.0-0.7) Basophils # (Auto) 0.0 x10^3/uL (0.0-0.2) 0.0 x10^3/uL (0.0-0.2) D-Dimer (Renata) 1.31 ug/mlFEU (0.00-0.50) Sodium Level 125 mmol/L (136-145) 124 mmol/L (136-145) Potassium Level 3.5 mmol/L (3.5-5.1) 3.1 mmol/L (3.5-5.1) Chloride Level 89 mmol/L (98-107) 90 mmol/L (98-107) Carbon Dioxide Level 23 mmol/L (21-32) 21 mmol/L (21-32) Anion Gap 13 (6-14) 13 (6-14) Blood Urea Nitrogen 6 mg/dL (8-26) 8 mg/dL (8-26) Creatinine 0.9 mg/dL (0.7-1.3) 0.8 mg/dL (0.7-1.3) Estimated GFR (Cockcroft-Gault) 86.1 98.6 Glucose Level 119 mg/dL (70-99) 114 mg/dL (70-99) Calcium Level 8.8 mg/dL (8.5-10.1) 8.0 mg/dL (8.5-10.1) Total Bilirubin 0.8 mg/dL (0.2-1.0) Direct Bilirubin 0.2 mg/dL (0.0-0.2) Aspartate Amino Transf (AST/SGOT) 48 U/L (15-37) Alanine Aminotransferase (ALT/SGPT) 24 U/L (16-63) Alkaline Phosphatase 69 U/L (46-116) Troponin I Quantitative < 0.017 ng/mL (0.000-0.055) WS-Oee-L-Type Natriuretic Peptide 269 pg/mL (0-124) Total Protein 7.8 g/dL (6.4-8.2) Albumin 3.0 g/dL (3.4-5.0) Lipase 90 U/L (73-393) Influenza Type A Antigen Negative (NEGATIVE) Influenza Type B Antigen Negative (NEGATIVE) Urine Opiates Screen Neg (NEG) Urine Methadone Screen Neg (NEG) Urine Barbiturates Neg (NEG) Urine Phencyclidine Screen Neg (NEG) Urine Amphetamine/Methamphetamine Neg (NEG) Urine Benzodiazepines Screen Neg (NEG) Urine Cocaine Screen Neg (NEG) Urine Cannabinoids Screen Neg (NEG) Urine Ethyl Alcohol Neg (NEG) Procalcitonin 1.10 ng/mL (0.00-0.10) Medications Current Medications Albuterol/ Ipratropium (Duoneb) 3 ml 1X ONCE NEB Last administered on at 15:29; Start 10/12/18 at 15:15; Stop 10/12/18 at 15:16; Status DC Iohexol (Omnipaque 350 Mg/ml) 100 ml 1X ONCE IV Last administered on at 16:45; Start 10/12/18 at 16:45; Stop 10/12/18 at 16:46; Status DC Azithromycin 250 ml @ 250 mls/hr 1X ONCE IV Last administered on 10/12/18at 18 :30; Start 10/12/18 at 18:30; Stop 10/12/18 at 19:29; Status DC Ceftriaxone Sodium (Rocephin) 1 gm 1X ONCE IVP Last administered on 10/12/18at 18:53; Start 10/12/18 at 18:00; Stop 10/12/18 at 18:01; Status DC Ondansetron HCl (Zofran) 4 mg PRN Q8HRS PRN IV NAUSEA/VOMITING; Start 10/12/18 at 17:45; Stop 10/13/18 at 17:44 Morphine Sulfate (Morphine Sulfate) 2 mg PRN Q2HR PRN IV PAIN; Start 10/12/18 at 17:45; Stop 10/13/18 at 17:44 Sodium Chloride 1,000 ml @ 100 mls/hr Q10H IV Last administered on 10/12/18at 20:32; Start 10/12/18 at 17:36; Stop 10/13/18 at 17:35 Labetalol HCl (Normodyne Iv Push) 10 mg 1X ONCE IVP Last administered on at 18:15; Start 10/12/18 at 18:15; Stop 10/12/18 at 18:16; Status DC Albuterol/ Ipratropium (Duoneb) 3 ml RTQID NEB Last administered on 10/13/18at 07:00; Start 10/12/18 at 20:00 Albuterol Sulfate (Ventolin Neb Soln) 2.5 mg PRN Q4HRS PRN NEB SHORTNESS OF BREATH; Start 10/12/18 at 20:00 Benzonatate (Tessalon Perle) 100 mg PRN TID PRN PO COUGH Last administered on at 20:57; Start 10/12/18 at 20:00; Stop 10/13/18 at 09:07; Status DC Zolpidem Tartrate (Ambien) 5 mg PRN QHS PRN PO INSOMNIA Last administered on at 22:09; Start 10/12/18 at 20:00 Docusate Sodium (Colace) 100 mg PRN BID PRN PO CONSTIPATION; Start 10/12/18 at 20:30 Levothyroxine Sodium (Synthroid) 175 mcg DAILYAC PO Last administered on at 06:29; Start 10/13/18 at 07:30 Piperacillin Sod/ Tazobactam Sod 3.375 gm/Sodium Chloride 50 ml @ 100 mls/hr Q6HRS IV Last administered on 10/13/18at 06:29; Start 10/13/18 at 00:00 Multivitamins 10 ml/Thiamine HCl 100 mg/Folic Acid 1 mg/Sodium Chloride 1,011.2 ml @ 100 mls/ hr DAILY IV Last administered on 10/13/18at 08:35; Start at 09:00; Stop 10/17/18 at 19:07 Multivitamins (Thera M Plus) 1 tab DAILY PO ; Start 10/13/18 at 09:00; Status UNV Folic Acid (Folic Acid) 1 mg DAILY PO ; Start 10/13/18 at 09:00; Status Cancel Lorazepam (Ativan) 4 mg PRN Q1HR PRN PO For CIWA 8-14; Start 10/12/18 at 22:30 Lorazepam (Ativan) 8 mg PRN Q1HR PRN PO For CIWA 15 or greater; Start 10/12/18 at 22:30 Lorazepam (Ativan) 2 mg PRN Q1HR PRN IV For CIWA 8-14; Start 10/12/18 at 22:30 Lorazepam (Ativan) 4 mg PRN Q1HR PRN IV For CIWA 15 or greater; Start 10/12/18 at 22:30 Haloperidol Lactate (Haldol Inj) 5 mg PRN Q4HRS PRN IVP Hallucinatns,Confusn, Delirium; Start 10/12/18 at 22:30 Diphenhydramine HCl (Benadryl) 25 mg PRN Q15MIN PRN IVP EPS symptoms 2'Haldol admin; Start 10/12/18 at 22:30 Clonidine HCl (Catapres) 0.1 mg PRN Q1HR PRN PO SBP > 180 or DBP > 100, MRX3; Start 10/12/18 at 22:30 Lorazepam (Ativan) 2 mg PRN Q15MIN PRN IV ANXIETY / AGITATION; Start 10/12/18 at 22:30 Vancomycin HCl (Vanco Per Pharmacy) 1 each PRN DAILY PRN MC SEE COMMENTS Last administered on 10/12/18at 23:09; Start 10/12/18 at 22:30 Vancomycin HCl 2 gm/Sodium Chloride 500 ml @ 250 mls/hr 1X ONCE IV Last administered on 10/12/18at 23:11; Start 10/12/18 at 22:30; Stop 10/13/18 at 00:29 ; Status DC Vancomycin HCl 1.5 gm/Sodium Chloride 500 ml @ 250 mls/hr Q12H IV Last administered on 10/13/18at 10:37; Start 10/13/18 at 11:00 Vancomycin HCl (Vancomycin Trough Level) 1 each 1X ONCE MC ; Start 10/14/18 at 10:30; Stop 10/14/18 at 10:31 Benzonatate (Tessalon Perle) 100 mg [id number] PO Last administered on 10/13/18at 09 :25; Start 10/13/18 at 09:30 Guaifenesin (Robitussin Dm) 10 ml PRN Q6HRS PRN PO COUGH Last administered on at 09:25; Start 10/13/18 at 09:15 Active Scripts Active Reported Docusate Sodium 100 Mg Capsule 100 Mg PO PRN PRN Levothyroxine Sodium 175 Mcg Tablet 175 Mcg PO DAILYAC Vitals/I & O Vital Sign - Last 24 Hours 10/12/18 10/12/18 10/12/18 10/12/18 15:23 15:30 16:30 17:30 Temp 98.6 98.6 Pulse 82 84 94 Resp 20 21 B/P (MAP) 150/78 (102) 192/94 (126) 205/93 (130) Pulse Ox 97 95 95 96 O2 Delivery Room Air Room Air Room Air Room Air 10/12/18 10/12/18 10/12/18 10/12/18 18:15 18:30 19:30 20:00 Pulse 94 82 82 Resp 19 B/P (MAP) 205/93 152/81 (104) 138/72 (94) Pulse Ox 92 94 O2 Delivery Room Air Room Air Room Air 10/12/18 10/12/18 10/12/18 10/13/18 20:19 20:28 22:52 03:00 Temp 99.8 98.1 98.3 99.8 98.1 98.3 Pulse 91 89 88 Resp 18 20 18 B/P (MAP) 144/67 (92) 154/64 (94) 144/79 (100) Pulse Ox 90 93 94 93 O2 Delivery Room Air Room Air Room Air Room Air 10/13/18 10/13/18 10/13/18 07:00 07:01 08:00 Temp 99.1 99.1 Pulse 81 Resp 18 B/P (MAP) 152/78 (102) Pulse Ox 97 O2 Delivery Room Air Room Air Room Air Intake and Output 10/12/18 10/12/18 10/13/18 15:00 23:00 07:00 Intake Total 650 ml 750 ml Output Total 600 ml Balance 650 ml 150 ml ELSIE YOON MD Oct 13, 2018 10:54
[2018-10-13 11:00] VITALS: BP 147/80
[2018-10-13] MEDS ORDERED: POTASSIUM CHLORIDE 20 MEQ TABLET.ER. PO ONE ×2 (12:15)
[2018-10-13] MEDS: VANCOMYCIN PER PHARMACY MC PRN (12:23)
[2018-10-13] MEDS: IV NORMAL SALINE 1000ML BAG 1,000 ML IV SCH (12:29)
--- NOTE | 2018-10-13 12:29 | CONS ---
DATE OF CONSULTATION: 10/13/2018 REFERRING PHYSICIAN: Dr. Pickett. REASON FOR CONSULTATION: Multilobar pneumonia. HISTORY OF PRESENT ILLNESS: A 62-year-old male with history of ETOH abuse, smoking, presented to the ER on 10/12/2018 with a persistent cough and shortness of breath, not improving for 2 weeks. He started having generalized aches, headache, runny nose, cough 2 weeks ago, did not feel good. He tried [id number] medication. He did not take any antibiotics last week. He also had hoarseness of voice, but then started having worsening cough with brownish green-yellow sputum production, weakness, not improving, so he presented to the ER. He had chest x-ray, which showed bilateral infiltrates. Lab was consistent with hyponatremia. He had mild elevation of procalcitonin, WBC was within normal limits. CT angio showed significant bilateral multifocal infiltrates, so he was started on IV vancomycin and Zosyn. He did receive one dose of azithromycin and ceftriaxone in the ER. The patient also has been smoking, trying to cut, had wheezing, so he got some albuterol treatments. Blood cultures were not done. Influenza screen was negative. ID consult has been requested for antibiotic management. PAST MEDICAL HISTORY: History of cancer, hypothyroidism, surgery for cancer, bilateral cataracts, heavy alcohol use. PAST SURGICAL HISTORY: Phacoemulsification with posterior chamber lens implant, left eye in 06/2018. Cataract removal. SOCIAL HISTORY: Smokes less than one-half pack per day. He is trying to cut back. Alcohol heavy, drugs none. Lives with a partners. 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 CURRENT MEDICATION: IV vancomycin and Zosyn. Had received azithromycin and ceftriaxone. ALLERGIES: No known drug allergies. REVIEW OF SYSTEMS: Negative except for above in HPI. PHYSICAL EXAMINATION: VITAL SIGNS: Stable, afebrile. GENERAL: Alert, oriented x 3. The patient in no acute distress, nontoxic appearing. HEENT: Normocephalic, atraumatic, anicteric. No thrush. Edentulous. Oral mucosa moist. No oropharyngeal exudate. NECK: Supple. No JVD. LUNGS: Decreased breath sounds with few expiratory rhonchi. HEART: S1, S2. No rubs, gallops, or murmurs or rubs. ABDOMEN: Soft, nontender, nondistended. No rebound, no guarding. EXTREMITIES: No edema, no cyanosis, no clubbing. SKIN: Warm, dry. No generalized rash. BACK: Normal curvature. No CVA tenderness. PSYCHIATRY: Cooperative. Appropriate mood and affect. LABORATORY DATA: WBC 7.2, hemoglobin 13.0, hematocrit 37.5, platelets 142, neutrophil percent 86. Sodium 124, potassium 3.1, chloride 90, bicarbonate 21, BUN 8, creatinine 0.8, glucose 114, calcium 8.0. Procalcitonin 1.10. LFTs within normal limits. AST 48. UDS negative. Influenza screen negative. IMAGING: CTA shows no pulmonary artery emboli, extensive bilateral multilobar centrilobular nodules and opacities with consolidation of the right middle lobe with air bronchograms most typical of multilobar, endobronchial pneumonia, sarcoidosis would be a secondary consideration given the presence of adenopathy. Consider followup CT imaging in 3 months per Fleischner guidelines to document that this is all to exclude the possibility of neoplasm, mild hilar adenopathy. IMPRESSION: 1. Likely post-viral pneumonia. 2. Influenza screen negative. 3. Bilateral multilobar infiltrates with hilar lymphadenopathy on CT imaging, changes could be from noninfectious pulmonary pathology. Pulmonary consulted. 4. Hyponatremia. 5. Hypothyroidism. 6. History of heavy alcohol use. 7. History of smoking. RECOMMENDATIONS: 1. Continue empiric IV vancomycin and Zosyn for now 2. The patient had been dosed with ceftriaxone and azithromycin in the ER. 3. Send sputum for culture. 4. Follow up pulmonary consultation. 5. Continue supportive care. Thank you for involving me to participate in this patient's care. I will continue to follow this. CIRA BARKER MD DR: RODGER/phil JOB#: [id number] / [id number] FERNY
[2018-10-13 15:00] VITALS: BP 147/82
--- NOTE | 2018-10-13 17:35 | PDOC ---
PULMONARY PROGRESS NOTES Vitals Vital Signs Date Time Temp Pulse Resp B/P (MAP) Pulse Ox O2 Delivery O2 Flow Rate FiO2 10/13/18 15:17 Room Air 10/13/18 15:00 98.0 83 18 147/82 (103) 94 98.0 Labs Laboratory Tests Test 10/12/18 15:31 10/12/18 16:02 10/13/18 01:30 10/13/18 03:35 White Blood Count 7.2 x10^3/uL (4.0-11.0) 7.2 x10^3/uL (4.0-11.0) Red Blood Count 4.58 x10^6/uL (4.30-5.70) 4.07 x10^6/uL (4.30-5.70) Hemoglobin 14.7 g/dL (13.0-17.5) 13.0 g/dL (13.0-17.5) Hematocrit 42.1 % (39.0-53.0) 37.5 % (39.0-53.0) Mean Corpuscular Volume 92 fL (79-100) 92 fL (79-100) Mean Corpuscular Hemoglobin 32 pg (25-35) 32 pg (25-35) Mean Corpuscular Hemoglobin Concent 35 g/dL (31-37) 35 g/dL (31-37) Red Cell Distribution Width 14.0 % (11.5-14.5) 13.8 % (11.5-14.5) Platelet Count 154 x10^3/uL (140-400) 142 x10^3/uL (140-400) Neutrophils (%) (Auto) 85 % (31-73) 86 % (31-73) Lymphocytes (%) (Auto) 5 % (24-48) 6 % (24-48) Monocytes (%) (Auto) 10 % (0-9) 8 % (0-9) Eosinophils (%) (Auto) 0 % (0-3) 0 % (0-3) Basophils (%) (Auto) 0 % (0-3) 0 % (0-3) Neutrophils # (Auto) 6.1 x10^3uL (1.8-7.7) 6.2 x10^3uL (1.8-7.7) Lymphocytes # (Auto) 0.4 x10^3/uL (1.0-4.8) 0.4 x10^3/uL (1.0-4.8) Monocytes # (Auto) 0.7 x10^3/uL (0.0-1.1) 0.6 x10^3/uL (0.0-1.1) Eosinophils # (Auto) 0.0 x10^3/uL (0.0-0.7) 0.0 x10^3/uL (0.0-0.7) Basophils # (Auto) 0.0 x10^3/uL (0.0-0.2) 0.0 x10^3/uL (0.0-0.2) D-Dimer (Renata) 1.31 ug/mlFEU (0.00-0.50) Sodium Level 125 mmol/L (136-145) 124 mmol/L (136-145) Potassium Level 3.5 mmol/L (3.5-5.1) 3.1 mmol/L (3.5-5.1) Chloride Level 89 mmol/L (98-107) 90 mmol/L (98-107) Carbon Dioxide Level 23 mmol/L (21-32) 21 mmol/L (21-32) Anion Gap 13 (6-14) 13 (6-14) Blood Urea Nitrogen 6 mg/dL (8-26) 8 mg/dL (8-26) Creatinine 0.9 mg/dL (0.7-1.3) 0.8 mg/dL (0.7-1.3) Estimated GFR (Cockcroft-Gault) 86.1 98.6 Glucose Level 119 mg/dL (70-99) 114 mg/dL (70-99) Calcium Level 8.8 mg/dL (8.5-10.1) 8.0 mg/dL (8.5-10.1) Total Bilirubin 0.8 mg/dL (0.2-1.0) Direct Bilirubin 0.2 mg/dL (0.0-0.2) Aspartate Amino Transf (AST/SGOT) 48 U/L (15-37) Alanine Aminotransferase (ALT/SGPT) 24 U/L (16-63) Alkaline Phosphatase 69 U/L (46-116) Troponin I Quantitative < 0.017 ng/mL (0.000-0.055) KW-Lmd-N-Type Natriuretic Peptide 269 pg/mL (0-124) Total Protein 7.8 g/dL (6.4-8.2) Albumin 3.0 g/dL (3.4-5.0) Lipase 90 U/L (73-393) Influenza Type A Antigen Negative (NEGATIVE) Influenza Type B Antigen Negative (NEGATIVE) Urine Random Sodium 12 mmol/L (Not Estab.) Urine Opiates Screen Neg (NEG) Urine Methadone Screen Neg (NEG) Urine Barbiturates Neg (NEG) Urine Phencyclidine Screen Neg (NEG) Urine Amphetamine/Methamphetamine Neg (NEG) Urine Benzodiazepines Screen Neg (NEG) Urine Cocaine Screen Neg (NEG) Urine Cannabinoids Screen Neg (NEG) Urine Ethyl Alcohol Neg (NEG) Procalcitonin 1.10 ng/mL (0.00-0.10) Laboratory Tests Test 10/13/18 01:30 10/13/18 03:35 Urine Random Sodium 12 mmol/L (Not Estab.) Urine Opiates Screen Neg (NEG) Urine Methadone Screen Neg (NEG) Urine Barbiturates Neg (NEG) Urine Phencyclidine Screen Neg (NEG) Urine Amphetamine/Methamphetamine Neg (NEG) Urine Benzodiazepines Screen Neg (NEG) Urine Cocaine Screen Neg (NEG) Urine Cannabinoids Screen Neg (NEG) Urine Ethyl Alcohol Neg (NEG) White Blood Count 7.2 x10^3/uL (4.0-11.0) Red Blood Count 4.07 x10^6/uL (4.30-5.70) Hemoglobin 13.0 g/dL (13.0-17.5) Hematocrit 37.5 % (39.0-53.0) Mean Corpuscular Volume 92 fL (79-100) Mean Corpuscular Hemoglobin 32 pg (25-35) Mean Corpuscular Hemoglobin Concent 35 g/dL (31-37) Red Cell Distribution Width 13.8 % (11.5-14.5) Platelet Count 142 x10^3/uL (140-400) Neutrophils (%) (Auto) 86 % (31-73) Lymphocytes (%) (Auto) 6 % (24-48) Monocytes (%) (Auto) 8 % (0-9) Eosinophils (%) (Auto) 0 % (0-3) Basophils (%) (Auto) 0 % (0-3) Neutrophils # (Auto) 6.2 x10^3uL (1.8-7.7) Lymphocytes # (Auto) 0.4 x10^3/uL (1.0-4.8) Monocytes # (Auto) 0.6 x10^3/uL (0.0-1.1) Eosinophils # (Auto) 0.0 x10^3/uL (0.0-0.7) Basophils # (Auto) 0.0 x10^3/uL (0.0-0.2) Sodium Level 124 mmol/L (136-145) Potassium Level 3.1 mmol/L (3.5-5.1) Chloride Level 90 mmol/L (98-107) Carbon Dioxide Level 21 mmol/L (21-32) Anion Gap 13 (6-14) Blood Urea Nitrogen 8 mg/dL (8-26) Creatinine 0.8 mg/dL (0.7-1.3) Estimated GFR (Cockcroft-Gault) 98.6 Glucose Level 114 mg/dL (70-99) Calcium Level 8.0 mg/dL (8.5-10.1) Procalcitonin 1.10 ng/mL (0.00-0.10) Medications Active Scripts Medications Dose Route/Sig Max Daily Dose Days Date Category Docusate Sodium 100 Mg Capsule 100 Mg PO PRN PRN 06/26/18 Reported Levothyroxine Sodium 175 Mcg Tablet 175 Mcg PO DAILYAC 06/26/18 Reported Impression . FULL NOTE DICTATED AGREE WITH CURRENT RX WILL REPEAT PROCALCITONIN REPEAT CT CHEST IN 2 MONTHS MITUL LUCIANO MD Oct 13, 2018 17:35
[2018-10-13 19:00] VITALS: BP 142/55
[2018-10-13] MEDS: LACTOBACILLUS RHAMNOSUS GG 1 CAPSULE. PO SCH (21:26)
--- NOTE | 2018-10-13 21:59 | CONS ---
DATE OF CONSULTATION: 10/13/2018 ATTENDING PHYSICIAN: Dr. Pickett. REASON FOR CONSULTATION: The patient seen in pulmonary consultation at the request of Dr. Pickett for abnormal CT chest. HISTORY OF PRESENT ILLNESS: The patient is a 62-year-old that has been smoking most of his adult life, presented with increasing shortness of breath, cough productive of mucus, all sorts of different colors at times mixed in with some blood. He had a chest x-ray, which revealed bilateral pulmonary infiltrates. CT confirmed bilateral multifocal infiltrates. He was started on IV vancomycin and Zosyn. He has been seen in consultation by ID. They have continued IV vancomycin and Zosyn. The patient does work in a hospital setting. 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 He normally does not experience severe acute exacerbations of COPD, does not wear oxygen at home. He does smoke. PAST MEDICAL HISTORY: Hypothyroidism, bilateral cataracts, heavy alcohol use, tobacco use, COPD. PAST SURGICAL HISTORY: He has had previous cataract removal and eye surgery. He had cancer of the thyroid and subsequently underwent a surgical resection. FAMILY HISTORY: Remarkable for alcoholism. SOCIAL HISTORY: He drinks heavily, smokes. CURRENT MEDICATIONS: List was reviewed. ALLERGIES: No known drug allergies. REVIEW OF SYSTEMS: As indicated above, otherwise, a 10-point system was reviewed and negative. PHYSICAL EXAMINATION: VITAL SIGNS: Stable. O2 saturation was greater than 92%. HEENT: Eyes, the sclerae were nonicteric. NECK: Jugular venous distention was not elevated. No lymphadenopathy. CHEST: Full expansion. LUNGS: Bilateral rales, rhonchi or wheezes. CARDIOVASCULAR: Regular rate and rhythm with S1, S2, no S3. ABDOMEN: Soft, nontender, nondistended. EXTREMITIES: No clubbing, cyanosis or edema. NEUROLOGIC: The patient was awake, alert, following commands. A detailed neuro exam was not performed. LABORATORY DATA: Reviewed. Procalcitonin was elevated at 1.10. Sodium was low. White count was normal. Hemoglobin and hematocrit were noted. CT reviewed as indicated above. There is no evidence of pulmonary emboli. There was bilateral multifocal opacities, mild hilar adenopathy. IMPRESSION: 1. Abnormal CT revealing multifocal opacities compatible with pneumonia. 2. Acute exacerbation of chronic obstructive pulmonary disease. 3. Acute bronchitis. 4. Tobacco use. 5. Alcoholism. 6. Elevated procalcitonin. 7. Sepsis. PLAN: 1. Continue IV vancomycin and Zosyn. 2. Follow sputum culture. 3. Repeat CT chest in 8 weeks. 4. Nebulized treatments. 5. The patient instructed on the importance of discontinuing tobacco use. I do appreciate the privilege in sharing this patient's care. MITUL LUCIANO MD DR: MARC/phil JOB#: [id number] / [id number]
[2018-10-13 23:00] VITALS: BP 163/82
[2018-10-14] MEDS: PIPERACILLIN/TAZOBACTAM 3.375 GM in IV NORMAL SALINE 50ML 50 ML IV SCH ×3 (00:23→11:24)
[2018-10-14 03:00] VITALS: BP 158/87
[2018-10-14] MEDS: LEVOTHYROXINE 175 MCG TABLET PO SCH (06:43)
[2018-10-14] MEDS: guaiFENesin DM 200MG/20MG 10 ML SYRUP PO PRN ×2 (06:46→11:59)
[2018-10-14 07:00] VITALS: BP 167/86
--- NOTE | 2018-10-14 08:09 | NUR ---
SW consulted for dc planning. Chart reviewed. Pt lives at home with spouse and on room air. No discharge recommendations noted at this time. Will continue to follow.
[2018-10-14] MEDS: LACTOBACILLUS RHAMNOSUS GG 1 CAPSULE. PO SCH ×2 (08:13→21:51)
[2018-10-14] MEDS: BENZONATATE 100 MG CAPSULE. PO SCH ×3 (08:13→21:51)
[2018-10-14] MEDS: IPRATRPIUM/ALBUTEROL 0.5/2.5MG 3 ML NEBU. NEB SCH ×4 (08:35→21:08)
--- NOTE | 2018-10-14 09:26 | PDOC ---
PULMONARY PROGRESS NOTES Subjective PT LESS SOA AND COUGH Vitals Vital Signs Date Time Temp Pulse Resp B/P (MAP) Pulse Ox O2 Delivery O2 Flow Rate FiO2 10/14/18 08:36 94 Room Air 10/14/18 07:00 98.4 75 20 167/86 (113) 98.4 ROS: No Nausea, No Chest Pain, No Abdominal Pain, No Increase Cough General: Alert Lungs: Crackles Cardiovascular: S1, S2 Abdomen: Soft Neuro Exam: Alert Extremities: No Edema Skin: Warm Labs Laboratory Tests Test 10/12/18 15:31 10/12/18 16:02 10/13/18 01:30 10/13/18 03:35 White Blood Count 7.2 x10^3/uL (4.0-11.0) 7.2 x10^3/uL (4.0-11.0) Red Blood Count 4.58 x10^6/uL (4.30-5.70) 4.07 x10^6/uL (4.30-5.70) Hemoglobin 14.7 g/dL (13.0-17.5) 13.0 g/dL (13.0-17.5) Hematocrit 42.1 % (39.0-53.0) 37.5 % (39.0-53.0) Mean Corpuscular Volume 92 fL (79-100) 92 fL (79-100) Mean Corpuscular Hemoglobin 32 pg (25-35) 32 pg (25-35) Mean Corpuscular Hemoglobin Concent 35 g/dL (31-37) 35 g/dL (31-37) Red Cell Distribution Width 14.0 % (11.5-14.5) 13.8 % (11.5-14.5) Platelet Count 154 x10^3/uL (140-400) 142 x10^3/uL (140-400) Neutrophils (%) (Auto) 85 % (31-73) 86 % (31-73) Lymphocytes (%) (Auto) 5 % (24-48) 6 % (24-48) Monocytes (%) (Auto) 10 % (0-9) 8 % (0-9) Eosinophils (%) (Auto) 0 % (0-3) 0 % (0-3) Basophils (%) (Auto) 0 % (0-3) 0 % (0-3) Neutrophils # (Auto) 6.1 x10^3uL (1.8-7.7) 6.2 x10^3uL (1.8-7.7) Lymphocytes # (Auto) 0.4 x10^3/uL (1.0-4.8) 0.4 x10^3/uL (1.0-4.8) Monocytes # (Auto) 0.7 x10^3/uL (0.0-1.1) 0.6 x10^3/uL (0.0-1.1) Eosinophils # (Auto) 0.0 x10^3/uL (0.0-0.7) 0.0 x10^3/uL (0.0-0.7) Basophils # (Auto) 0.0 x10^3/uL (0.0-0.2) 0.0 x10^3/uL (0.0-0.2) D-Dimer (Renata) 1.31 ug/mlFEU (0.00-0.50) Sodium Level 125 mmol/L (136-145) 124 mmol/L (136-145) Potassium Level 3.5 mmol/L (3.5-5.1) 3.1 mmol/L (3.5-5.1) Chloride Level 89 mmol/L (98-107) 90 mmol/L (98-107) Carbon Dioxide Level 23 mmol/L (21-32) 21 mmol/L (21-32) Anion Gap 13 (6-14) 13 (6-14) Blood Urea Nitrogen 6 mg/dL (8-26) 8 mg/dL (8-26) Creatinine 0.9 mg/dL (0.7-1.3) 0.8 mg/dL (0.7-1.3) Estimated GFR (Cockcroft-Gault) 86.1 98.6 Glucose Level 119 mg/dL (70-99) 114 mg/dL (70-99) Calcium Level 8.8 mg/dL (8.5-10.1) 8.0 mg/dL (8.5-10.1) Total Bilirubin 0.8 mg/dL (0.2-1.0) Direct Bilirubin 0.2 mg/dL (0.0-0.2) Aspartate Amino Transf (AST/SGOT) 48 U/L (15-37) Alanine Aminotransferase (ALT/SGPT) 24 U/L (16-63) Alkaline Phosphatase 69 U/L (46-116) Troponin I Quantitative < 0.017 ng/mL (0.000-0.055) FP-Mwh-F-Type Natriuretic Peptide 269 pg/mL (0-124) Total Protein 7.8 g/dL (6.4-8.2) Albumin 3.0 g/dL (3.4-5.0) Lipase 90 U/L (73-393) Influenza Type A Antigen Negative (NEGATIVE) Influenza Type B Antigen Negative (NEGATIVE) Urine Random Sodium 12 mmol/L (Not Estab.) Urine Opiates Screen Neg (NEG) Urine Methadone Screen Neg (NEG) Urine Barbiturates Neg (NEG) Urine Phencyclidine Screen Neg (NEG) Urine Amphetamine/Methamphetamine Neg (NEG) Urine Benzodiazepines Screen Neg (NEG) Urine Cocaine Screen Neg (NEG) Urine Cannabinoids Screen Neg (NEG) Urine Ethyl Alcohol Neg (NEG) Procalcitonin 1.10 ng/mL (0.00-0.10) Test 10/13/18 18:30 Procalcitonin 0.79 ng/mL (0.00-0.10) Laboratory Tests Test 10/13/18 18:30 Procalcitonin 0.79 ng/mL (0.00-0.10) Medications Active Scripts Medications Dose Route/Sig Max Daily Dose Days Date Category Docusate Sodium 100 Mg Capsule 100 Mg PO PRN PRN 06/26/18 Reported Levothyroxine Sodium 175 Mcg Tablet 175 Mcg PO DAILYAC 06/26/18 Reported Impression . IMPRESSION: 1. Abnormal CT revealing multifocal opacities compatible with pneumonia. 2. Acute exacerbation of chronic obstructive pulmonary disease. 3. Acute bronchitis. 4. Tobacco use. 5. Alcoholism. 6. Elevated procalcitonin. 7. Sepsis. Plan . HOME IN AM 10/15 OK IF ID AGREES FOLLOW UP WITH ME IN [address] CHEST D/C SMOKING MITUL LUCIANO MD Oct 14, 2018 09:26
--- NOTE | 2018-10-14 10:48 | NUR ---
Vanco. trough drawn, await results for next dose of vanco. due at , patient verb. understanding POC.
[2018-10-14 11:00] VITALS: BP 155/75
--- NOTE | 2018-10-14 11:03 | PDOC ---
PROGRESS NOTES Chief Complaint Chief Complaint 1. MUltilobar pneumonia Smoker Hyponatremia, in a COPD er Occasional etoh drinker Left eye implant 06/2018 [id number] 1.10 History of Present Illness History of Present Illness Looks and feels better Procalcitonin down to 0.79 from 1.4 He has yet to ambulate the halls EARLIER ENTRY He is feeling way better than on admission His cough is loosening up NO fevers Colleague has started Doxy 100 twice a day IVP also on solu 60 IV every 8 which I think we can start decreasing it as he is not wheezing too much Never had pneumonia before He does continue to smoke half a pack a day to 1 pack a day I have provided him a copy of CT chest which shows no PE but multi lobar pneumonia banana bag running but he is only an occasional drinker. Sodium 124 in the COPD year-potassium 3.1 on KCl 10 mg Plan: c p.m. Doing better Recheck pro-calcitonin tomorrow it is coming down I would still like to keep given multi lobar pneumonia Ambulate ad lizandro. Vitals Vitals Vital Signs Date Time Temp Pulse Resp B/P (MAP) Pulse Ox O2 Delivery O2 Flow Rate FiO2 10/14/18 08:36 94 Room Air 10/14/18 07:00 98.4 75 20 167/86 (113) 98.4 Physical Exam General: Alert, Oriented X3, Cooperative, mild distress Abdomen: Normal bowel sounds, Soft, No tenderness Extremities: No cyanosis, No edema Labs LABS Laboratory Tests Test 10/13/18 18:30 Procalcitonin 0.79 ng/mL (0.00-0.10) Review of Systems Review of Systems A 14 point ROS was completed with the following noted as positive: Other systems reviewed and negative. \CONSTITUTIONAL: No fever or chills EYES: No recent changes SKIN: No rash or itching CARDIOVASCULAR: No chest pain, syncope, palpitations, or edema RESPIRATORY: No SOB or cough GASTROINTESTINAL: No nausea, vomiting or abdominal pain NEUROLOGICAL: No headaches or weakness ENDOCRINE: No cold or heat intolerance GENITOURINARY: No urgency or frequency of urination MUSCULOSKELETAL: No back pain or joint pain LYMPHATICS: No enlarged lymph nodes PSYCHIATRIC: No anxiety or depression Assessment and Plan Assessmemt and Plan Problems Medical Problems: (1) Pneumonia Status: Acute (2) Productive cough Status: Acute Comment Review of Relevant I have reviewed the following items ade (where applicable) has been applied. Labs Laboratory Tests Test 10/12/18 15:31 10/12/18 16:02 10/13/18 01:30 10/13/18 03:35 White Blood Count 7.2 x10^3/uL (4.0-11.0) 7.2 x10^3/uL (4.0-11.0) Red Blood Count 4.58 x10^6/uL (4.30-5.70) 4.07 x10^6/uL (4.30-5.70) Hemoglobin 14.7 g/dL (13.0-17.5) 13.0 g/dL (13.0-17.5) Hematocrit 42.1 % (39.0-53.0) 37.5 % (39.0-53.0) Mean Corpuscular Volume 92 fL (79-100) 92 fL (79-100) Mean Corpuscular Hemoglobin 32 pg (25-35) 32 pg (25-35) Mean Corpuscular Hemoglobin Concent 35 g/dL (31-37) 35 g/dL (31-37) Red Cell Distribution Width 14.0 % (11.5-14.5) 13.8 % (11.5-14.5) Platelet Count 154 x10^3/uL (140-400) 142 x10^3/uL (140-400) Neutrophils (%) (Auto) 85 % (31-73) 86 % (31-73) Lymphocytes (%) (Auto) 5 % (24-48) 6 % (24-48) Monocytes (%) (Auto) 10 % (0-9) 8 % (0-9) Eosinophils (%) (Auto) 0 % (0-3) 0 % (0-3) Basophils (%) (Auto) 0 % (0-3) 0 % (0-3) Neutrophils # (Auto) 6.1 x10^3uL (1.8-7.7) 6.2 x10^3uL (1.8-7.7) Lymphocytes # (Auto) 0.4 x10^3/uL (1.0-4.8) 0.4 x10^3/uL (1.0-4.8) Monocytes # (Auto) 0.7 x10^3/uL (0.0-1.1) 0.6 x10^3/uL (0.0-1.1) Eosinophils # (Auto) 0.0 x10^3/uL (0.0-0.7) 0.0 x10^3/uL (0.0-0.7) Basophils # (Auto) 0.0 x10^3/uL (0.0-0.2) 0.0 x10^3/uL (0.0-0.2) D-Dimer (Renata) 1.31 ug/mlFEU (0.00-0.50) Sodium Level 125 mmol/L (136-145) 124 mmol/L (136-145) Potassium Level 3.5 mmol/L (3.5-5.1) 3.1 mmol/L (3.5-5.1) Chloride Level 89 mmol/L (98-107) 90 mmol/L (98-107) Carbon Dioxide Level 23 mmol/L (21-32) 21 mmol/L (21-32) Anion Gap 13 (6-14) 13 (6-14) Blood Urea Nitrogen 6 mg/dL (8-26) 8 mg/dL (8-26) Creatinine 0.9 mg/dL (0.7-1.3) 0.8 mg/dL (0.7-1.3) Estimated GFR (Cockcroft-Gault) 86.1 98.6 Glucose Level 119 mg/dL (70-99) 114 mg/dL (70-99) Calcium Level 8.8 mg/dL (8.5-10.1) 8.0 mg/dL (8.5-10.1) Total Bilirubin 0.8 mg/dL (0.2-1.0) Direct Bilirubin 0.2 mg/dL (0.0-0.2) Aspartate Amino Transf (AST/SGOT) 48 U/L (15-37) Alanine Aminotransferase (ALT/SGPT) 24 U/L (16-63) Alkaline Phosphatase 69 U/L (46-116) Troponin I Quantitative < 0.017 ng/mL (0.000-0.055) FE-Vnb-[id number]-Type Natriuretic Peptide 269 pg/mL (0-124) Total Protein 7.8 g/dL (6.4-8.2) Albumin 3.0 g/dL (3.4-5.0) Lipase 90 U/L (73-393) Influenza Type A Antigen Negative (NEGATIVE) Influenza Type B Antigen Negative (NEGATIVE) Urine Random Sodium 12 mmol/L (Not Estab.) Urine Opiates Screen Neg (NEG) Urine Methadone Screen Neg (NEG) Urine Barbiturates Neg (NEG) Urine Phencyclidine Screen Neg (NEG) Urine Amphetamine/Methamphetamine Neg (NEG) Urine Benzodiazepines Screen Neg (NEG) Urine Cocaine Screen Neg (NEG) Urine Cannabinoids Screen Neg (NEG) Urine Ethyl Alcohol Neg (NEG) Procalcitonin 1.10 ng/mL (0.00-0.10) Test 10/13/18 18:30 Procalcitonin 0.79 ng/mL (0.00-0.10) Laboratory Tests Test 10/13/18 18:30 Procalcitonin 0.79 ng/mL (0.00-0.10) Medications Current Medications Albuterol/ Ipratropium (Duoneb) 3 ml 1X ONCE NEB Last administered on at 15:29; Start 10/12/18 at 15:15; Stop 10/12/18 at 15:16; Status DC Iohexol (Omnipaque 350 Mg/ml) 100 ml 1X ONCE IV Last administered on at 16:45; Start 10/12/18 at 16:45; Stop 10/12/18 at 16:46; Status DC Azithromycin 250 ml @ 250 mls/hr 1X ONCE IV Last administered on 10/12/18at 18 :30; Start 10/12/18 at 18:30; Stop 10/12/18 at 19:29; Status DC Ceftriaxone Sodium (Rocephin) 1 gm 1X ONCE IVP Last administered on 10/12/18at 18:53; Start 10/12/18 at 18:00; Stop 10/12/18 at 18:01; Status DC Ondansetron HCl (Zofran) 4 mg PRN Q8HRS PRN IV NAUSEA/VOMITING; Start 10/12/18 at 17:45; Stop 10/13/18 at 17:44; Status DC Morphine Sulfate (Morphine Sulfate) 2 mg PRN Q2HR PRN IV PAIN; Start 10/12/18 at 17:45; Stop 10/13/18 at 17:44; Status DC Sodium Chloride 1,000 ml @ 100 mls/hr Q10H IV Last administered on 10/13/18at 12:29; Start 10/12/18 at 17:36; Stop 10/13/18 at 17:35; Status DC Labetalol HCl (Normodyne Iv Push) 10 mg 1X ONCE IVP Last administered on at 18:15; Start 10/12/18 at 18:15; Stop 10/12/18 at 18:16; Status DC Albuterol/ Ipratropium (Duoneb) 3 ml RTQID NEB Last administered on 10/14/18at 08:35; Start 10/12/18 at 20:00 Albuterol Sulfate (Ventolin Neb Soln) 2.5 mg PRN Q4HRS PRN NEB SHORTNESS OF BREATH; Start 10/12/18 at 20:00 Benzonatate (Tessalon Perle) 100 mg PRN TID PRN PO COUGH Last administered on at 20:57; Start 10/12/18 at 20:00; Stop 10/13/18 at 09:07; Status DC Zolpidem Tartrate (Ambien) 5 mg PRN QHS PRN PO INSOMNIA Last administered on at 22:09; Start 10/12/18 at 20:00 Docusate Sodium (Colace) 100 mg PRN BID PRN PO CONSTIPATION; Start 10/12/18 at 20:30 Levothyroxine Sodium (Synthroid) 175 mcg DAILYAC PO Last administered on at 06:43; Start 10/13/18 at 07:30 Piperacillin Sod/ Tazobactam Sod 3.375 gm/Sodium Chloride 50 ml @ 100 mls/hr Q6HRS IV Last administered on 10/14/18at 06:06; Start 10/13/18 at 00:00 Multivitamins 10 ml/Thiamine HCl 100 mg/Folic Acid 1 mg/Sodium Chloride 1,011.2 ml @ 100 mls/ hr DAILY IV Last administered on 10/13/18at 08:35; Start at 09:00; Stop 10/13/18 at 10:52; Status DC Multivitamins (Thera M Plus) 1 tab DAILY PO ; Start 10/13/18 at 09:00; Status UNV Folic Acid (Folic Acid) 1 mg DAILY PO ; Start 10/13/18 at 09:00; Status Cancel Lorazepam (Ativan) 4 mg PRN Q1HR PRN PO For CIWA 8-14; Start 10/12/18 at 22:30 Lorazepam (Ativan) 8 mg PRN Q1HR PRN PO For CIWA 15 or greater; Start 10/12/18 at 22:30 Lorazepam (Ativan) 2 mg PRN Q1HR PRN IV For CIWA 8-14; Start 10/12/18 at 22:30 Lorazepam (Ativan) 4 mg PRN Q1HR PRN IV For CIWA 15 or greater; Start 10/12/18 at 22:30 Haloperidol Lactate (Haldol Inj) 5 mg PRN Q4HRS PRN IVP Hallucinatns,Confusn, Delirium; Start 10/12/18 at 22:30 Diphenhydramine HCl (Benadryl) 25 mg PRN Q15MIN PRN IVP EPS symptoms 2'Haldol admin; Start 10/12/18 at 22:30 Clonidine HCl (Catapres) 0.1 mg PRN Q1HR PRN PO SBP > 180 or DBP > 100, MRX3; Start 10/12/18 at 22:30 Lorazepam (Ativan) 2 mg PRN Q15MIN PRN IV ANXIETY / AGITATION; Start 10/12/18 at 22:30 Vancomycin HCl (Vanco Per Pharmacy) 1 each PRN DAILY PRN MC SEE COMMENTS Last administered on 10/13/18at 12:23; Start 10/12/18 at 22:30 Vancomycin HCl 2 gm/Sodium Chloride 500 ml @ 250 mls/hr 1X ONCE IV Last administered on 10/12/18at 23:11; Start 10/12/18 at 22:30; Stop 10/13/18 at 00:29 ; Status DC Vancomycin HCl 1.5 gm/Sodium Chloride 500 ml @ 250 mls/hr Q12H IV Last administered on 10/13/18at 23:16; Start 10/13/18 at 11:00 Vancomycin HCl (Vancomycin Trough Level) 1 each 1X ONCE MC ; Start 10/14/18 at 10:30; Stop 10/14/18 at 10:31; Status DC Benzonatate (Tessalon Perle) 100 mg [id number] PO Last administered on 10/14/18at 08 :13; Start 10/13/18 at 09:30 Guaifenesin (Robitussin Dm) 10 ml PRN Q6HRS PRN PO COUGH Last administered on at 06:46; Start 10/13/18 at 09:15 Potassium Chloride (Klor-Con) 40 meq 1X ONCE PO ; Start 10/13/18 at 12:15; Stop 10/13/18 at 12:16; Status UNV Potassium Chloride (Klor-Con) 40 meq 1X ONCE PO Last administered on at 12:28; Start 10/13/18 at 12:15; Stop 10/13/18 at 12:16; Status DC Lactobacillus Rhamnosus (Culturelle) 1 cap BID PO Last administered on at 08:13; Start 10/13/18 at 21:00 Active Scripts Active Reported Docusate Sodium 100 Mg Capsule 100 Mg PO PRN PRN Levothyroxine Sodium 175 Mcg Tablet 175 Mcg PO DAILYAC Vitals/I & O Vital Sign - Last 24 Hours 10/13/18 10/13/18 10/13/18 10/13/18 11:25 15:00 15:17 19:00 Temp 98.0 98.7 98.0 98.7 Pulse 83 61 Resp 18 18 B/P (MAP) 147/82 (103) 142/55 (84) Pulse Ox 93 94 93 O2 Delivery Room Air Room Air Room Air Room Air 10/13/18 10/13/18 10/13/18 10/14/18 20:00 20:48 23:00 03:00 Temp 98.3 98.3 98.3 98.3 Pulse 87 77 Resp 18 18 B/P (MAP) 163/82 (109) 158/87 (110) Pulse Ox 96 93 94 O2 Delivery Room Air Room Air Room Air Room Air 10/14/18 10/14/18 10/14/18 07:00 08:00 08:36 Temp 98.4 98.4 Pulse 75 Resp 20 B/P (MAP) 167/86 (113) Pulse Ox 96 94 O2 Delivery Room Air Room Air Room Air Intake and Output 10/13/18 10/13/18 10/14/18 15:00 23:00 07:00 Intake Total 1500 ml 120 ml Output Total 1050 ml 500 ml 2100 ml Balance 450 ml -500 ml -1980 ml ELSIE YOON MD Oct 14, 2018 11:03
[2018-10-14 11:06] LABS: VANC TR 8.4 mcg/mL (10.0-20.0)
--- NOTE | 2018-10-14 11:10 | NUR ---
Vanco. Trough 8.4 low, reported to [facility], to change dose. See orders. Patient verb. understanding POC.
[2018-10-14] MEDS: VANCOMYCIN PER PHARMACY MC PRN (11:20)
--- NOTE | 2018-10-14 11:20 | NUR ---
Pharmacy Vancomycin Dosing Note S: Consulted to monitor and dose vancomycin started 10/12/18. O: SHALINI MOORE is a 62 year old M with Pneumonia, . Other Antibiotics: ZOSYN 3.375GM IV Q6H LABS: Last BUN: 8 Last Creatinine: 0.8 Creatinine Clearance: 117 mL/min Last WBC: 7.2 Last Procalcitonin: 0.79 Tmax (past 24 hours): 98.4 Drug Levels: Last Trough level: 8.4 on 10/14/18 at 1025 Last dose given 10/13/18 at 2316 Vancomycin Dosing: Dosing Weight: Actual Target Trough: 15-20 A: Based on: sub-therapeutic trough P: 1. Change Vancomycin to 1250 mg IV q8h 2. Follow up Trough level on 10/15/18 at 1130 3. Pharmacy will continue to monitor, follow and adjust therapy as needed. ARGELIA ROQUE RPH, 10/14/18 1120
[2018-10-14] MEDS ORDERED: VANCOMYCIN 1.25 GM in IV NORMAL SALINE 250ML 250 ML IV SCH (12:00)
--- NOTE | 2018-10-14 13:07 | PDOC ---
Infectious Disease Note Subjective: Subjective pt feels a little better has been able to bring up phlegm no f/c/n/v/d ROS: ROS Negative except for above. Vital Signs: Vital Signs Vital Signs Date Time Temp Pulse Resp B/P (MAP) Pulse Ox O2 Delivery O2 Flow Rate FiO2 10/14/18 11:49 94 Room Air 10/14/18 11:00 98.4 81 20 155/75 (101) 98.4 Physical Exam: PHYSICAL EXAM GENERAL: Alert, oriented x 3. The patient in no acute distress, nontoxic appearing. HEENT: Normocephalic, atraumatic, anicteric. No thrush. Edentulous. Oral mucosa moist. No oropharyngeal exudate. NECK: Supple. No JVD. LUNGS: Decreased breath sounds with few expiratory rhonchi. HEART: S1, S2. No rubs, gallops, or murmurs or rubs. ABDOMEN: Soft, nontender, nondistended. No rebound, no guarding. EXTREMITIES: No edema, no cyanosis, no clubbing. SKIN: Warm, dry. No generalized rash. BACK: Normal curvature. No CVA tenderness. PSYCHIATRY: Cooperative. Appropriate mood and affect. Medications: Inpatient Meds: Current Medications Medications (Trade) Dose Ordered Sig/Jarvis Start Time Stop Time Status Last Admin Dose Admin Albuterol Sulfate (Ventolin Neb Soln) 2.5 mg PRN Q4HRS PRN 10/12/18 20:00 Albuterol/ Ipratropium (Duoneb) 3 ml RTQID 10/12/18 20:00 10/14/18 11:48 3 ML Azithromycin 250 ml @ 250 mls/hr 1X ONCE 10/12/18 18:30 10/12/18 19:29 DC 10/12/18 18:30 250 MLS/HR Benzonatate (Tessalon Perle) 100 mg [id number] 10/13/18 09:30 10/14/18 08:13 100 MG Ceftriaxone Sodium (Rocephin) 1 gm 1X ONCE 10/12/18 18:00 10/12/18 18:01 DC 10/12/18 18:53 1 GM Clonidine HCl (Catapres) 0.1 mg PRN Q1HR PRN 10/12/18 22:30 Diphenhydramine HCl (Benadryl) 25 mg PRN Q15MIN PRN 10/12/18 22:30 Docusate Sodium (Colace) 100 mg PRN BID PRN 10/12/18 20:30 Folic Acid (Folic Acid) 1 mg DAILY 10/13/18 09:00 Cancel Guaifenesin (Robitussin Dm) 10 ml PRN Q6HRS PRN 10/13/18 09:15 10/14/18 11:59 10 ML Haloperidol Lactate (Haldol Inj) 5 mg PRN Q4HRS PRN 10/12/18 22:30 Iohexol (Omnipaque 350 Mg/ml) 100 ml 1X ONCE 10/12/18 16:45 10/12/18 16:46 DC 10/12/18 16:45 100 ML Labetalol HCl (Normodyne Iv Push) 10 mg 1X ONCE 10/12/18 18:15 10/12/18 18:16 DC 10/12/18 18:15 10 MG Lactobacillus Rhamnosus (Culturelle) 1 cap BID 10/13/18 21:00 10/14/18 08:13 1 CAP Levothyroxine Sodium (Synthroid) 175 mcg DAILYAC 10/13/18 07:30 10/14/18 06:43 175 MCG Lorazepam (Ativan) 2 mg PRN Q15MIN PRN 10/12/18 22:30 10/14/18 11:26 DC Morphine Sulfate (Morphine Sulfate) 2 mg PRN Q2HR PRN 10/12/18 17:45 10/13/18 17:44 DC Multivitamins (Thera M Plus) 1 tab DAILY 10/13/18 09:00 UNV Multivitamins 10 ml/Thiamine HCl 100 mg/Folic Acid 1 mg/Sodium Chloride 1,011.2 ml @ 100 mls/ hr DAILY 10/13/18 09:00 10/13/18 10:52 DC 10/13/18 08:35 100 MLS/HR Ondansetron HCl (Zofran) 4 mg PRN Q8HRS PRN 10/12/18 17:45 10/13/18 17:44 DC Piperacillin Sod/ Tazobactam Sod 3.375 gm/Sodium Chloride 50 ml @ 100 mls/hr Q6HRS 10/13/18 00:00 10/14/18 11:24 100 MLS/HR Potassium Chloride (Klor-Con) 40 meq 1X ONCE 10/13/18 12:15 10/13/18 12:16 DC 10/13/18 12:28 40 MEQ Sodium Chloride 1,000 ml @ 100 mls/hr Q10H 10/12/18 17:36 10/13/18 17:35 DC 10/13/18 12:29 100 MLS/HR Vancomycin HCl (Vanco Per Pharmacy) 1 each PRN DAILY PRN 10/12/18 22:30 10/14/18 11:20 1 EACH Vancomycin HCl (Vancomycin Trough Level) 1 each 1X ONCE 10/15/18 11:30 10/15/18 11:31 Vancomycin HCl 1.25 gm/Sodium Chloride 250 ml @ 167 mls/hr Q8H 10/14/18 12:00 10/14/18 11:59 167 MLS/HR Vancomycin HCl 1.5 gm/Sodium Chloride 500 ml @ 250 mls/hr Q12H 10/13/18 11:00 10/14/18 11:10 DC 10/13/18 23:16 250 MLS/HR Vancomycin HCl 2 gm/Sodium Chloride 500 ml @ 250 mls/hr 1X ONCE 10/12/18 22:30 10/13/18 00:29 DC 10/12/18 23:11 250 MLS/HR Zolpidem Tartrate (Ambien) 5 mg PRN QHS PRN 10/12/18 20:00 10/12/18 22:09 5 MG Labs: Lab Laboratory Tests Test 10/13/18 18:30 10/14/18 10:25 Procalcitonin 0.79 ng/mL (0.00-0.10) Vancomycin Level Trough 8.4 mcg/mL (10.0-20.0) Vancomycin Last Dose Date 10/13/18 Vancomycin Last Dose Time 2300 Objective: Assessment: 1. Likely post-viral pneumonia ,sputum c/s neg 2. Influenza screen negative. 3. Bilateral multilobar infiltrates with hilar lymphadenopathy on CT imaging, changes could be from noninfectious pulmonary pathology. Pulmonary consulted. 4. Hyponatremia. 5. Hypothyroidism. 6. History of heavy alcohol use. 7. History of smoking. Plan: Plan of Care DC IV vancomycin and Zosyn start augmentin and doxycycline ,latter for atypical coverage f/u sputum c/s Pt will need f/u ct lung as outpt for f/u as planned by pulmonary If stable, can dc home tomorrow cont supportive care CIRA BARKER MD Oct 14, 2018 13:07
[2018-10-14] MEDS: AMOXICILLIN/K CLAV 875/125MG TABLET. PO SCH ×2 (14:39→21:52)
[2018-10-14] MEDS: DOXYCYCLINE HYCLATE 100 MG TABLET PO SCH ×2 (14:39→21:51)
[2018-10-14 15:00] VITALS: BP 150/71
[2018-10-14 19:00] VITALS: BP 131/56
[2018-10-14] MEDS: ZOLPIDEM 5 MG TABLET. PO PRN (21:55)
[2018-10-14 22:38] VITALS: BP 155/78
[2018-10-15 03:00] VITALS: BP 161/87
[2018-10-15] MEDS: LEVOTHYROXINE 175 MCG TABLET PO SCH (07:00)
[2018-10-15 07:15] VITALS: BP 167/74
[2018-10-15] MEDS: IPRATRPIUM/ALBUTEROL 0.5/2.5MG 3 ML NEBU. NEB SCH ×2 (07:19→11:12)
--- NOTE | 2018-10-15 09:01 | PDOC ---
Infectious Disease Note Subjective: Subjective pt feels a little better has been able to bring up phlegm no f/c/n/v/d ROS: ROS Negative except for above. Vital Signs: Vital Signs Vital Signs Date Time Temp Pulse Resp B/P (MAP) Pulse Ox O2 Delivery O2 Flow Rate FiO2 10/15/18 07:20 Room Air 10/15/18 07:15 97.7 83 18 167/74 (105) 95 97.7 Physical Exam: PHYSICAL EXAM GENERAL: Alert, oriented x 3. The patient in no acute distress, nontoxic appearing. HEENT: Normocephalic, atraumatic, anicteric. No thrush. Edentulous. Oral mucosa moist. No oropharyngeal exudate. NECK: Supple. No JVD. LUNGS: Decreased breath sounds with few expiratory rhonchi. HEART: S1, S2. No rubs, gallops, or murmurs or rubs. ABDOMEN: Soft, nontender, nondistended. No rebound, no guarding. EXTREMITIES: No edema, no cyanosis, no clubbing. SKIN: Warm, dry. No generalized rash. BACK: Normal curvature. No CVA tenderness. PSYCHIATRY: Cooperative. Appropriate mood and affect. Medications: Inpatient Meds: Current Medications Medications (Trade) Dose Ordered Sig/Jarvis Start Time Stop Time Status Last Admin Dose Admin Albuterol Sulfate (Ventolin Neb Soln) 2.5 mg PRN Q4HRS PRN 10/12/18 20:00 Albuterol/ Ipratropium (Duoneb) 3 ml RTQID 10/12/18 20:00 10/15/18 07:19 3 ML Amoxicillin/ Clavulanate Potassium (Augmentin 875/ 125mg) 1 tab BID 10/14/18 14:00 10/14/18 21:52 1 TAB Azithromycin 250 ml @ 250 mls/hr 1X ONCE 10/12/18 18:30 10/12/18 19:29 DC 10/12/18 18:30 250 MLS/HR Benzonatate (Tessalon Perle) 100 mg [id number] 10/13/18 09:30 10/14/18 21:51 100 MG Ceftriaxone Sodium (Rocephin) 1 gm 1X ONCE 10/12/18 18:00 10/12/18 18:01 DC 10/12/18 18:53 1 GM Clonidine HCl (Catapres) 0.1 mg PRN Q1HR PRN 10/12/18 22:30 Diphenhydramine HCl (Benadryl) 25 mg PRN Q15MIN PRN 10/12/18 22:30 Docusate Sodium (Colace) 100 mg PRN BID PRN 10/12/18 20:30 Doxycycline Hyclate (Vibra-Tab) 100 mg BID 10/14/18 14:00 10/14/18 21:51 100 MG Folic Acid (Folic Acid) 1 mg DAILY 10/13/18 09:00 Cancel Guaifenesin (Robitussin Dm) 10 ml PRN Q6HRS PRN 10/13/18 09:15 10/14/18 11:59 10 ML Haloperidol Lactate (Haldol Inj) 5 mg PRN Q4HRS PRN 10/12/18 22:30 Iohexol (Omnipaque 350 Mg/ml) 100 ml 1X ONCE 10/12/18 16:45 10/12/18 16:46 DC 10/12/18 16:45 100 ML Labetalol HCl (Normodyne Iv Push) 10 mg 1X ONCE 10/12/18 18:15 10/12/18 18:16 DC 10/12/18 18:15 10 MG Lactobacillus Rhamnosus (Culturelle) 1 cap BID 10/13/18 21:00 10/14/18 21:51 1 CAP Levothyroxine Sodium (Synthroid) 175 mcg DAILYAC 10/13/18 07:30 10/15/18 07:00 175 MCG Lorazepam (Ativan) 2 mg PRN Q15MIN PRN 10/12/18 22:30 10/14/18 11:26 DC Morphine Sulfate (Morphine Sulfate) 2 mg PRN Q2HR PRN 10/12/18 17:45 10/13/18 17:44 DC Multivitamins (Thera M Plus) 1 tab DAILY 10/13/18 09:00 UNV Multivitamins 10 ml/Thiamine HCl 100 mg/Folic Acid 1 mg/Sodium Chloride 1,011.2 ml @ 100 mls/ hr DAILY 10/13/18 09:00 10/13/18 10:52 DC 10/13/18 08:35 100 MLS/HR Ondansetron HCl (Zofran) 4 mg PRN Q8HRS PRN 10/12/18 17:45 10/13/18 17:44 DC Piperacillin Sod/ Tazobactam Sod 3.375 gm/Sodium Chloride 50 ml @ 100 mls/hr Q6HRS 10/13/18 00:00 10/14/18 13:04 DC 10/14/18 11:24 100 MLS/HR Potassium Chloride (Klor-Con) 40 meq 1X ONCE 10/13/18 12:15 10/13/18 12:16 DC 10/13/18 12:28 40 MEQ Sodium Chloride 1,000 ml @ 100 mls/hr Q10H 10/12/18 17:36 10/13/18 17:35 DC 10/13/18 12:29 100 MLS/HR Vancomycin HCl (Vanco Per Pharmacy) 1 each PRN DAILY PRN 10/12/18 22:30 10/14/18 13:10 DC 10/14/18 11:20 1 EACH Vancomycin HCl (Vancomycin Trough Level) 1 each 1X ONCE 10/15/18 11:30 10/15/18 11:30 DC Vancomycin HCl 1.25 gm/Sodium Chloride 250 ml @ 167 mls/hr Q8H 10/14/18 12:00 10/14/18 13:04 DC 10/14/18 11:59 167 MLS/HR Vancomycin HCl 1.5 gm/Sodium Chloride 500 ml @ 250 mls/hr Q12H 10/13/18 11:00 10/14/18 11:10 DC 10/13/18 23:16 250 MLS/HR Vancomycin HCl 2 gm/Sodium Chloride 500 ml @ 250 mls/hr 1X ONCE 10/12/18 22:30 10/13/18 00:29 DC 10/12/18 23:11 250 MLS/HR Zolpidem Tartrate (Ambien) 5 mg PRN QHS PRN 10/12/18 20:00 10/14/18 21:55 5 MG Labs: Lab Laboratory Tests Test 10/14/18 10:25 Vancomycin Level Trough 8.4 mcg/mL (10.0-20.0) Vancomycin Last Dose Date 10/13/18 Vancomycin Last Dose Time 2300 Objective: Assessment: 1. Likely post-viral pneumonia ,sputum c/s neg 2. Influenza screen negative. 3. Bilateral multilobar infiltrates with hilar lymphadenopathy on CT imaging, changes could be from noninfectious pulmonary pathology. Pulmonary consulted. 4. Hyponatremia. 5. Hypothyroidism. 6. History of heavy alcohol use. 7. History of smoking. Plan: Plan of Care cont augmentin and doxycycline for 7 days f/u sputum c/s,neg so far Pt will need f/u ct lung as outpt for f/u as planned by pulmonary D/W CIRA HUTCHINSON MD Oct 15, 2018 09:01
[2018-10-15] MEDS: DOXYCYCLINE HYCLATE 100 MG TABLET PO SCH (09:04)
[2018-10-15] MEDS: LACTOBACILLUS RHAMNOSUS GG 1 CAPSULE. PO SCH (09:04)
[2018-10-15] MEDS: AMOXICILLIN/K CLAV 875/125MG TABLET. PO SCH (09:04)
[2018-10-15] MEDS: BENZONATATE 100 MG CAPSULE. PO SCH ×2 (09:05→13:59)
[2018-10-15 09:12] LABS: BASO % 0 % (0-3); EOS % 1 % (0-3); HEMATOCRIT 36.6 % (39.0-53.0); HEMOGLOBIN 12.7 g/dL (13.0-17.5); LYMPH # 0.6 x10^3/uL (1.0-4.8); LYMPH % 15 % (24-48); MEAN CORPUSCULAR HEMOGLOBIN 32 pg (25-35); MEAN CORPUSCULAR HGB CONC 35 g/dL (31-37); MEAN CORPUSCULAR VOLUME 93 fL (79-100); MONO # 0.7 x10^3/uL (0.0-1.1); MONO % 17 % (0-9); NEUT # 2.7 x10^3uL (1.8-7.7); NEUT % 67 % (31-73); PLATELET COUNT 173 x10^3/uL (140-400); RED BLOOD COUNT 3.96 x10^6/uL (4.30-5.70); RED CELL DISTRIBUTION WIDTH 14.4 % (11.5-14.5); WHITE BLOOD COUNT 4.1 x10^3/uL (4.0-11.0)
--- NOTE | 2018-10-15 09:23 | PDOC ---
PULMONARY PROGRESS NOTES Subjective PT BETTER WANTS TO GO HOME Vitals Vital Signs Date Time Temp Pulse Resp B/P (MAP) Pulse Ox O2 Delivery O2 Flow Rate FiO2 10/15/18 07:20 Room Air 10/15/18 07:15 97.7 83 18 167/74 (105) 95 97.7 ROS: No Nausea, No Chest Pain, No Abdominal Pain, No Increase Cough General: Alert Lungs: Crackles Cardiovascular: S1, S2 Abdomen: Soft Neuro Exam: Alert Extremities: No Edema Skin: Warm Labs Laboratory Tests Test 10/13/18 18:30 10/14/18 10:25 10/15/18 07:53 Procalcitonin 0.79 ng/mL (0.00-0.10) Vancomycin Level Trough 8.4 mcg/mL (10.0-20.0) Vancomycin Last Dose Date 10/13/18 Vancomycin Last Dose Time 2300 White Blood Count 4.1 x10^3/uL (4.0-11.0) Red Blood Count 3.96 x10^6/uL (4.30-5.70) Hemoglobin 12.7 g/dL (13.0-17.5) Hematocrit 36.6 % (39.0-53.0) Mean Corpuscular Volume 93 fL (79-100) Mean Corpuscular Hemoglobin 32 pg (25-35) Mean Corpuscular Hemoglobin Concent 35 g/dL (31-37) Red Cell Distribution Width 14.4 % (11.5-14.5) Platelet Count 173 x10^3/uL (140-400) Neutrophils (%) (Auto) 67 % (31-73) Lymphocytes (%) (Auto) 15 % (24-48) Monocytes (%) (Auto) 17 % (0-9) Eosinophils (%) (Auto) 1 % (0-3) Basophils (%) (Auto) 0 % (0-3) Neutrophils # (Auto) 2.7 x10^3uL (1.8-7.7) Lymphocytes # (Auto) 0.6 x10^3/uL (1.0-4.8) Monocytes # (Auto) 0.7 x10^3/uL (0.0-1.1) Eosinophils # (Auto) 0.0 x10^3/uL (0.0-0.7) Basophils # (Auto) 0.0 x10^3/uL (0.0-0.2) Laboratory Tests Test 10/14/18 10:25 10/15/18 07:53 Vancomycin Level Trough 8.4 mcg/mL (10.0-20.0) Vancomycin Last Dose Date 10/13/18 Vancomycin Last Dose Time 2300 White Blood Count 4.1 x10^3/uL (4.0-11.0) Red Blood Count 3.96 x10^6/uL (4.30-5.70) Hemoglobin 12.7 g/dL (13.0-17.5) Hematocrit 36.6 % (39.0-53.0) Mean Corpuscular Volume 93 fL (79-100) Mean Corpuscular Hemoglobin 32 pg (25-35) Mean Corpuscular Hemoglobin Concent 35 g/dL (31-37) Red Cell Distribution Width 14.4 % (11.5-14.5) Platelet Count 173 x10^3/uL (140-400) Neutrophils (%) (Auto) 67 % (31-73) Lymphocytes (%) (Auto) 15 % (24-48) Monocytes (%) (Auto) 17 % (0-9) Eosinophils (%) (Auto) 1 % (0-3) Basophils (%) (Auto) 0 % (0-3) Neutrophils # (Auto) 2.7 x10^3uL (1.8-7.7) Lymphocytes # (Auto) 0.6 x10^3/uL (1.0-4.8) Monocytes # (Auto) 0.7 x10^3/uL (0.0-1.1) Eosinophils # (Auto) 0.0 x10^3/uL (0.0-0.7) Basophils # (Auto) 0.0 x10^3/uL (0.0-0.2) Medications Active Scripts Medications Dose Route/Sig Max Daily Dose Days Date Category Docusate Sodium 100 Mg Capsule 100 Mg PO PRN PRN 06/26/18 Reported Levothyroxine Sodium 175 Mcg Tablet 175 Mcg PO DAILYAC 06/26/18 Reported Impression . IMPRESSION: 1. Abnormal CT revealing multifocal opacities compatible with pneumonia. 2. Acute exacerbation of chronic obstructive pulmonary disease. 3. Acute bronchitis. 4. Tobacco use. 5. Alcoholism. 6. Elevated procalcitonin. 7. Sepsis. Plan . D/W DR TOUSSAINT HOME ON ACUMENTIN FOLLOW UP WITH ME IN [address] CHEST D/C SMOKING MITUL LUCIANO MD Oct 15, 2018 09:23
[2018-10-15 09:38] LABS: CALCIUM 8.3 mg/dL (8.5-10.1); CREATININE 0.6 mg/dL (0.7-1.3); GFR 137.4; POTASSIUM 3.1 mmol/L (3.5-5.1)
[2018-10-15 11:14] VITALS: BP 160/90
[2018-10-15 11:31] LABS: % BANDS 2 % (0-9); % LYMPHS 17 % (24-48); % MONOS 12 % (0-10); % MYELOS 2 % (0-0); % SEGS 67 % (35-66); PLT ESTIMATE ADEQUATE (ADEQUATE)
[2018-10-15 15:11] VITALS: BP 162/93
--- NOTE | 2018-10-15 19:00 | DS ---
DATE OF DISCHARGE: 10/15/2018 ADMISSION DIAGNOSIS: Pneumonia. DISCHARGE DIAGNOSIS: Resolving pneumonia. HOSPITAL COURSE: The patient is a pleasant 62-year-old male who presented with pneumonia. He was admitted, given IV antibiotics, breathing treatments, DuoNeb and oxygen. We consulted Pulmonary. This morning, I saw him and examined him. His heart tones were normal. His lungs were much clearer. He is doing well. He had no edema. Skin was clear. We plan to discharge with close outpatient followup. I did discuss the case with Dr. Gunderson, he agrees. DISPOSITION: Home. ACTIVITY: As tolerated. DIET: Low sodium. MEDICATIONS: Please see the MRAD. TOTAL TIME: 33 minutes. ASHVIN TOUSSAINT DO DR: ROD/phil JOB#: [id number] / [id number]
== END 2018-10-15 15:25 | disposition home or self-care (01) | DRG 871 ==
LOC: ER 14:54 → 5 NORTH 17:36
PROVIDERS: ADMIT Family Medicine; ATTEND Family Medicine
DX: A41.9 Sepsis, unspecified organism (principal); J18.1 Lobar pneumonia, unspecified organism; E87.1 Hypo-osmolality and hyponatremia; J44.0 Chronic obstructive pulmonary disease with (acute) lower respiratory infection; J44.1 Chronic obstructive pulmonary disease with (acute) exacerbation; D86.9 Sarcoidosis, unspecified; J20.9 Acute bronchitis, unspecified; E03.9 Hypothyroidism, unspecified; F10.20 Alcohol dependence, uncomplicated; F17.210 Nicotine dependence, cigarettes, uncomplicated; Z85.850 Personal history of malignant neoplasm of thyroid; Z79.899 Other long term (current) drug therapy; Z98.49 Cataract extraction status, unspecified eye
CPT/HCPCS: 36415; 71045; 71275; 80048; 80076; 80202; 80307; 83690; 83880; 84145; 84300; 84484; 85007; 85025; 85379; 87070; 87205; 87449; 87804; 93005; 94640; 94760; 96365; 96375; J0456; J0696; J2543; J3370; J3490; J7030; J7040; J7050; J7620; Q9967; 99285-25

== ENCOUNTER → 2019-02-23 | Outpatient (CLI) | payer OTHER ==
--- NOTE | 2019-02-23 14:45 | RAD ---
Examination: CT CHEST WO CONTRAST History: Lung nodule Comparison/Correlation: 10/12/2018 CTA of the chest Findings: Axial images of the chest were obtained without contrast. Sagittal and coronal reformatted images were provided. Lung combs are unremarkable with no suspicious infiltrate. Apical interstitial thickening is similar to previous exam and chronic in appearance. No suspicious pulmonary nodule or mass. Previously evident infiltrates have resolved. No pleural or pericardial effusion. No enlarged thoracic lymph nodes. Bony structures are unremarkable. Upper abdomen is unremarkable. Impression: No suspicious process. Resolution of previously evident infiltrates. PQRS Compliance Statement: One or more of the following individualized dose reduction techniques were utilized for this examination: 1. Automated exposure control 2. Adjustment of the mA and/or kV according to patient size 3. Use of iterative reconstruction technique Electronically signed by: Gurdeep Myers MD (02/23/2019 2:42 PM) [facility]
== END | disposition home or self-care (01) ==
LOC: CT 10:53
PROVIDERS: ATTEND Internal Medicine Pulmonary Disease
DX: R91.1 Solitary pulmonary nodule (principal)
CPT/HCPCS: 71250

== ENCOUNTER → 2019-03-04 | Outpatient (CLI) | payer OTHER ==
--- NOTE | 2019-03-10 13:00 | SLEEP ---
DATE OF STUDY: 03/04/2019 STUDY PERFORMED: Home sleep study. ATTENDING PHYSICIAN: Mitul Gunderson MD The patient is 63-year-old who weighs 195 pounds with a BMI of 25. The patient's Simla score was 4. The patient underwent home sleep study performed by [facility]. Total recording time was 312 minutes. During the night study, the patient had 57 obstructive apneas, no central or mixed apneas and 7 hypopneas. The patient's apnea hypopnea index was 12 per hour. Nocturnal oximetry study revealed an average oxygen saturation of 92%; the lowest of 85%. A 32 minutes were spent in oxygen saturation less than 90%. Mean heart rate was 64 beats per minute with a maximum 84 beats per minute. IMPRESSION: 1. Mild sleep apnea-hypopnea syndrome at an AHI of 12 per hour. 2. Nocturnal hypoxia secondary to obstructive sleep apnea. RECOMMENDATION: 1. If the patient is clinically symptomatic or has comorbid medical conditions, then the patient would benefit from treatment of sleep apnea with either CPAP or oral appliance. 2. Weight loss is strongly advised. 3. Avoid [facility]ITAL[facility] depressants. 4. If the patient undergoes treatment with CPAP or oral appliance, then he should be followed up in 4-6 weeks to assess compliance and to document clinical improvement. 5. Avoid P[facility] HOSPITAL[facility] depressants. 6. Cautioned regarding driving until the patient's hypersomnia is resolved with above recommendations. MYRTLE NIXON MD DR: NAMRATA/phil JOB#: [id number] / [id number] MITUL Paulson MD
== END | disposition home or self-care (01) ==
LOC: RT 08:15
PROVIDERS: ATTEND Internal Medicine Pulmonary Disease
DX: G47.33 Obstructive sleep apnea (adult) (pediatric) (principal); G47.34 Idiopathic sleep related nonobstructive alveolar hypoventilation
CPT/HCPCS: G0399

== ENCOUNTER → 2021-10-11 | Outpatient (CLI) | payer OTHER ==
--- NOTE | 2021-10-11 21:07 | RAD ---
MR#: [id number] Date of Study: 10/11/2021 Ordering Physician: MAMI TORRES, Referring Physician: MAMI TORRES, Tech: Ellie Jo RVT, ALBANIAND APPROVED REPORT Patient Location: OUT-PATIENT Laterality:Bilateral Indications Bruit Risk Factors Hypertension: Smoking Doppler Spectral Velocity Analysis Right Left pCCA 82/16 cm/spCCA 58/14 cm/s mCCA 64/12 cm/smCCA 71/25 cm/s dCCA 60/16 cm/sdCCA 65/19 cm/s ECA 106/ cm/sECA 129/ cm/s pICA 50/12 cm/spICA 64/16 cm/s Haroon 66/20 cm/smICA 74/26 cm/s dICA 121/20 cm/sdICA 113/42 cm/s ICA/CCA 1.48ICA/CCA 1.95 Findings Grayscale images of the bilateral carotid vessels demonstrates mild diffuse atherosclerosis. Spectra l waveforms and color Doppler are grossly within normal limits. Overall 0 to less than 50% stenosis. Normal ICA to CCA ratios with antegrade vertebral velocities. Critical Notification Critical Value: No <Conclusion> 1. No significant extracranial carotid occlusive disease bilaterally. Signed by : Mami Torres, Electronically Approved : 10/11/2021 21:06:29
--- NOTE | 2021-10-11 21:14 | RAD ---
MR#: [id number] Date of Study: 10/11/2021 Ordering Physician: MAMI TORRES, Referring Physician: MAMI TORRES, Tech: Ellie Jo RVT, SRIKANTH APPROVED REPORT Patient Location: OUT-PATIENT Exam Type: Ankle to Brachial Index Risk Factors Hypertension Smoking Pressures/Indices RightABI LeftABI Brachial [id number] 519ulXt4.33 Ankle(PT) NCmmHgAnkle(PT) 184mmHg Ankle(DP) 140mmHgAnkle(DP) 197mmHg Critical Notification Critical Value: No <Conclusion> 1. Normal right DAMEON 2. Left DAMEON elevated likely due to calcification Signed by : Mami Torres, Electronically Approved : 10/11/2021 21:13:52
--- NOTE | 2021-10-11 21:15 | RAD ---
MR#: [id number] Date of Study: 10/11/2021 Ordering Physician: ARIS TORRES, Referring Physician: ARIS TORRES, Tech: Ellie Jo RVT, SRIKANTH APPROVED REPORT Patient Location: OUT-PATIENT Risk Factors Hypertension Smoking Duplex Results A/PTransverseLongitudinal Proximal Aorta 2.5cm2.4cm Mid Aorta 2.3cm2.5cm Distal Aorta 1.9cm1.9cm Rt. Common Iliac Artery1.2cm1.2cm Lt. Common Iliac Artery 1.4cm1.4cm Doppler VelocityWaveform Proximal Aorta 44.1 cm/sec Aorta Mid. 88.4 cm/sec Distal Aorta 139.5 cm/sec Rt. Common Iliac Hxivls647.6 cm/sec Lt. Common Iliac Artery 93.6 cm/sec Findings Grayscale images of the abdominal aorta demonstrate moderate diffuse atherosclerotic plaque. Normal velocities are noted throughout. No high-grade focal stenosis identified in the bilateral com mon iliacs. No evidence of abdominal aortic aneurysm Critical Notification Critical Value: No <Conclusion> 1. No evidence of abdominal aortic aneurysm Signed by : Aris Torres, Electronically Approved : 10/11/2021 21:14:47
--- NOTE | 2021-10-11 21:17 | RAD ---
MR#: [id number] Date of Study: 10/11/2021 Ordering Physician: ARIS TORRES, Referring Physician: ARIS TORRES, Tech: Ellie Jo RVT, [facility] APPROVED REPORT Patient Location: OUT-PATIENT Risk Factors Hypertension Smoking VELOCITY AND DOPPLER WAVEFORM ANALYSIS RIGHT cm/secWaveformSeverity LEFT cm/secWaveform Severity dCFA 119.0TriphasicdCFA 148.0Triphasic Prof Fem Art. 57.0BiphasicProf Fem Art. 68.0Biphasic Fem Art Prox. 89.0TriphasicFem Art Prox. 120.0Triphasic Fem Art Mid. 89.0TriphasicFem Art Mid. 117.0Triphasic Fem Art Dist. 73.0BiphasicFem Art Dist. 112.0Triphasic Pop Art(Fossa) 51.0BiphasicPop Art(AK) 56.0Triphasic DRINK BOX MECHANIC Prox. 40.0BiphasicPTA Prox. 30.0Biphasic DRINK BOX MECHANIC Dist. 83.0BiphasicPTA Dist. 59.0Biphasic Per Art Dist.34.0BiphasicPer Art Dist.55.0Biphasic LUCI Prox. 100.0BiphasicATA Prox. 116.0Biphasic DPA 74BiphasicDPA 100Biphasic Findings Grayscale images of the bilateral lower extremity arterial vessels demonstrate diffuse atherosclerosi s without any focal high-grade stenosis. Spectral waveforms are mostly triphasic and biphasic throughout the bilateral lower extremity arteria l vessels. Velocities are grossly within normal limits with three-vessel runoff below the knee. Pro bable is distal small vessel disease involving the anterior tibial arteries bilaterally. Critical Notification Critical Value: No <Conclusion> 1. No significant bilateral lower extremity arterial disease Signed by : Aris Torres, Electronically Approved : 10/11/2021 21:16:51
== END ==
LOC: US 09:37
PROVIDERS: ATTEND Internal Medicine Cardiovascular Disease
DX: I65.23 Occlusion and stenosis of bilateral carotid arteries (principal); I70.203 Unspecified atherosclerosis of native arteries of extremities, bilateral legs; I70.0 Atherosclerosis of aorta; R60.9 Edema, unspecified; Z87.891 Personal history of nicotine dependence
CPT/HCPCS: 76770; 93880; 93922; 93925

== ENCOUNTER → 2021-10-17 | Outpatient (CLI) | payer OTHER ==
--- NOTE | 2021-10-17 12:19 | RAD ---
EXAM: CT CHEST WITHOUT CONTRAST (LDCT LUNG CANCER SCREENING). HISTORY: Risk factors for pulmonary malignancy. Tobacco use. TECHNIQUE: CT of the chest was performed without intravenous contrast using a low-dose lung screening protocol. Findings analysis is based on ACR Lung-RADS v1.1. *One or more of the following individual ized dose reduction techniques were utilized for this examination: 1. Automated exposure control. 2. Adjustment of the mA and/or kV according to patient size. 3. Use of iterative reconstruction technique. COMPARISON: None. FINDINGS: The heart is normal in size. There is coronary artery calcification. No pathologically enla rged lymph node is seen. There is no infiltrate, pleural effusion or pneumothorax. There is fairly sy mmetric bilateral apical pleural parenchymal scarring. There is moderate emphysema. There is mild bro nchial wall thickening, likely due to the sequela of bronchitis. There is a 2 mm groundglass nodule w ithin the left lower lobe with adjacent 2 mm pleural-based nodule. There is a 5 mm pleural-based nodu le within the posterior right lower lobe. These lesions are likely benign based on size and location. There is no acute finding involving the upper abdomen or osseous structures. IMPRESSION: 1. Tiny bilateral lower lobe pulmonary nodules, the largest of which is a 5 mm pleural-based nodule w ithin the right lower lobe. Lung RADS category 2: Follow-up with a CT in 12 months is recommended. 2. Emphysema with biapical pleural parenchymal scarring. 3. Mild bronchial wall thickening, likely due to the sequela of bronchitis. 4. Coronary artery calcification. Electronically signed by: Brittnee Hebert MD (10/17/2021 12:17 PM) [facility]
== END ==
LOC: CT 08:45
PROVIDERS: ATTEND Internal Medicine Cardiovascular Disease
DX: R91.8 Other nonspecific abnormal finding of lung field (principal); J43.9 Emphysema, unspecified; J98.09 Other diseases of bronchus, not elsewhere classified; I25.10 Atherosclerotic heart disease of native coronary artery without angina pectoris; Z72.0 Tobacco use
CPT/HCPCS: 71271